=== PATIENT | male | born 1935 | race Caucasian/White ===

== ENCOUNTER → 2023-07-11 12:22 | Outpatient (REF) | payer MEDICARE, SELFPAY ==
[2023-07-11 16:00] LABS: Urine Albumin Negative (Neg - Trace); Urine Bilirubin Negative (Negative); Urine Character Clear (Clear); Urine Color Yellow; Urine Glucose Trace (Negative); Urine Ketone Negative (Negative); Urine Leukocyte Negative (Negative); Urine Nitrite Negative (Negative); Urine Occult Blood Negative (Negative); Urine Urobilinogen Negative (Neg - 1+)
[2023-07-11 16:03] LABS: % Basophils 0.3 % (0-2); % Eosinophils 0.8 % (0-6); % Immature Granulocytes 0.3 % (0-0.5); % Lymphocytes 11.5 % (20.5-51.1); % Monocytes 8.3 % (1.7-9.3); % Neutrophils 78.8 % (42.2-75.2); Absolute Lymphocytes 0.5 10^3/uL (1.2-3.4); Absolute Monocytes 0.3 10^3/uL (0.1-0.6); Absolute Neutrophils 3.2 10^3/uL (1.4-6.5); Hematocrit 32.4 % (39.0-52.0); Hemoglobin 10.5 g/dL (13.0-18.0); Mean Corp Hgb Conc. 32.4 g/dL (33.0-37.0); Mean Corpuscular Hgb 29.5 pg (27.0-31.0); Mean Platelet Volume 11.5 fL (7.4-10.4); Nucleated Red Blood Cells % 0 % (-); Platelet Count 162 10^3/uL (130-400); Red Blood Cell Count 3.56 10^6/uL (4.70-6.10); Red Cell Dist. Width 13.2 % (11.5-14.5)
[2023-07-11 16:13] LABS: Blood Urea Nitrogen 26 mg/dl (9-20); Calcium 8.8 mg/dl (8.4-10.2); Carbon Dioxide 26 mmol/L (22-30); Chloride 103 mmol/L (98-107); Glucose 288 mg/dl (70-99); Phosphorus 3.9 mg/dl (2.5-4.5); Potassium 4.8 mmol/L (3.5-5.1); Sodium 135 mmol/L (135-145)
[2023-07-11 16:27] LABS: Protein/creatinine Ratio 0.3; Urine Protein 16 mg/dl
[2023-07-11 17:37] LABS: Urine Red Blood Cell 0-2 /HPF (0-2); Urine Squamous Cell 0-2 /LPF (Few); Urine White Cell 0-2 /HPF (0-5)
== END ==
LOC: HWLAB 12:22
PROVIDERS: ATTENDING PHYSICIAN Internal Medicine Nephrology; FAMILY PHYSICIAN Family Medicine
DX: N18.32 Chronic kidney disease, stage 3b (principal); I12.9 Hypertensive chronic kidney disease with stage 1 through stage 4 chronic kidney disease, or unspecified chronic kidney disease; Z51.81 Encounter for therapeutic drug level monitoring; E08.21 Diabetes mellitus due to underlying condition with diabetic nephropathy; E26.09 Other primary hyperaldosteronism; I10 Essential (primary) hypertension; D63.1 Anemia in chronic kidney disease; E55.9 Vitamin D deficiency, unspecified
CPT/HCPCS: 36415; 80048; 81003; 81015; 82570; 83970; 84100; 84156; 85025

== ENCOUNTER → 2023-10-13 06:21 | Day surgery (SDC) | payer MEDICARE, SELFPAY ==
[2023-10-13 08:19] LABS: Glucose - Point of Care 141 mg/dl (70-99)
== END ==
LOC: GI 06:21
PROVIDERS: ATTENDING PHYSICIAN Specialist
DX: R10.13 Epigastric pain (principal); R93.3 Abnormal findings on diagnostic imaging of other parts of digestive tract; K31.89 Other diseases of stomach and duodenum; D13.1 Benign neoplasm of stomach
CPT/HCPCS: 43239; 88305; 82962; 88342

== ENCOUNTER → 2023-11-16 11:42 | Outpatient (REF) | payer MEDICARE, SELFPAY ==
[2023-11-16 16:30] LABS: Blood Urea Nitrogen 38 mg/dl (9-20); Carbon Dioxide 23 mmol/L (22-30); Chloride 104 mmol/L (98-107); Glucose 239 mg/dl (70-99); Potassium 5.6 mmol/L (3.5-5.1); Sodium 135 mmol/L (135-145); eGFR 38.78
== END ==
LOC: HWLAB 11:42
PROVIDERS: ATTENDING PHYSICIAN Internal Medicine; FAMILY PHYSICIAN Family Medicine; REFERRING PHYSICIAN Internal Medicine Nephrology
DX: I25.10 Atherosclerotic heart disease of native coronary artery without angina pectoris (principal); N18.32 Chronic kidney disease, stage 3b; Z51.81 Encounter for therapeutic drug level monitoring
CPT/HCPCS: 36415; 80048

== ENCOUNTER → 2023-11-24 10:45 | Outpatient (REF) | payer MEDICARE, SELFPAY ==
[2023-11-24 12:24] LABS: % Basophils 0.4 % (0-2); % Eosinophils 1.6 % (0-6); % Immature Granulocytes 0.4 % (0-0.5); % Lymphocytes 11.4 % (20.5-51.1); % Monocytes 9.7 % (1.7-9.3); % Neutrophils 76.5 % (42.2-75.2); Absolute Eosinophils 0.1 10^3/uL (0-0.7); Absolute Lymphocytes 0.7 10^3/uL (1.2-3.4); Absolute Monocytes 0.6 10^3/uL (0.1-0.6); Absolute Neutrophils 4.4 10^3/uL (1.4-6.5); Hematocrit 31.9 % (39.0-52.0); Hemoglobin 10.6 g/dL (13.0-18.0); Mean Corp Hgb Conc. 33.2 g/dL (33.0-37.0); Mean Corpuscular Hgb 29.8 pg (27.0-31.0); Mean Corpuscular Volume 89.6 fL (80.0-94.0); Mean Platelet Volume 11.9 fL (7.4-10.4); Nucleated Red Blood Cells % 0 % (-); Platelet Count 155 10^3/uL (130-400); Red Blood Cell Count 3.56 10^6/uL (4.70-6.10); Red Cell Dist. Width 13.2 % (11.5-14.5); White Blood Cell Count 5.7 10^3/uL (4.8-10.8)
[2023-11-24 12:52] LABS: ALT (SGPT) 18 U/L (0-50); AST (SGOT) 26 U/L (17-59); Albumin 4.1 g/dl (3.5-5.0); Alkaline Phosphatase 85 U/L (38-126); Blood Urea Nitrogen 35 mg/dl (9-20); Calcium 8.8 mg/dl (8.4-10.2); Carbon Dioxide 25 mmol/L (22-30); Chloride 104 mmol/L (98-107); Glucose 208 mg/dl (70-99); Potassium 5.5 mmol/L (3.5-5.1); Sodium 134 mmol/L (135-145); Total Bilirubin 0.9 mg/dl (0.2-1.3); Total Protein 6.6 g/dl (6.3-8.2); eGFR 38.53
== END ==
LOC: HWRAD 10:45
PROVIDERS: ATTENDING PHYSICIAN Internal Medicine; FAMILY PHYSICIAN Family Medicine
DX: C68.9 Malignant neoplasm of urinary organ, unspecified (principal)
CPT/HCPCS: 36415; 71250; 74176; 80053; 85025

== ENCOUNTER → 2023-11-29 09:45 | Outpatient (REF) | payer MEDICARE, SELFPAY | LOC: DHSLP 09:45 | PROVIDERS: ATTENDING PHYSICIAN Internal Medicine Critical Care Medicine; FAMILY PHYSICIAN Family Medicine | DX: G47.33 Obstructive sleep apnea (adult) (pediatric) (principal); G47.31 Primary central sleep apnea | CPT/HCPCS: 95811 ==

== ENCOUNTER 2023-12-13 06:34 | Day surgery (SDC) | payer MEDICARE, SELFPAY ==
[2023-12-13] VITALS (7 sets, daily range): BP systolic 131–191; BP diastolic 55–85; BMI 23.1
[2023-12-13 07:23] LABS: Glucose - Point of Care 171 mg/dl (70-99)
[2023-12-13 09:47] LABS: Glucose - Point of Care 157 mg/dl (70-99)
== END 2023-12-13 10:57 | disposition home or self-care (01) ==
LOC: SDS 06:34
PROVIDERS: ATTENDING PHYSICIAN Internal Medicine Gastroenterology
DX: D13.1 Benign neoplasm of stomach (principal); Z98.0 Intestinal bypass and anastomosis status
CPT/HCPCS: 43254; 88305; 82962

== ENCOUNTER 2023-12-25 17:53 | Inpatient (IN) | payer MEDICARE, SELFPAY ==
[2023-12-25] VITALS (9 sets, daily range): BP systolic 146–192; BP diastolic 66–89; BMI 22.1
[2023-12-25 12:37] LABS: % Basophils 0.4 % (0-2); % Eosinophils 1.3 % (0-6); % Immature Granulocytes 0.4 % (0-0.5); % Lymphocytes 12.6 % (20.5-51.1); % Monocytes 9.7 % (1.7-9.3); % Neutrophils 75.6 % (42.2-75.2); Absolute Eosinophils 0.1 10^3/uL (0-0.7); Absolute Lymphocytes 0.7 10^3/uL (1.2-3.4); Absolute Monocytes 0.5 10^3/uL (0.1-0.6); Absolute Neutrophils 4.2 10^3/uL (1.4-6.5); Hemoglobin 11.5 g/dL (13.0-18.0); Mean Corp Hgb Conc. 33.8 g/dL (33.0-37.0); Mean Corpuscular Hgb 30.5 pg (27.0-31.0); Mean Corpuscular Volume 90.2 fL (80.0-94.0); Mean Platelet Volume 11.6 fL (7.4-10.4); Nucleated Red Blood Cells % 0 % (-); Platelet Count 165 10^3/uL (130-400); Red Blood Cell Count 3.77 10^6/uL (4.70-6.10); Red Cell Dist. Width 13.3 % (11.5-14.5); White Blood Cell Count 5.6 10^3/uL (4.8-10.8)
[2023-12-25 12:49] LABS: ALT (SGPT) 20 U/L (0-50); AST (SGOT) 26 U/L (17-59); Albumin 4.4 g/dl (3.5-5.0); Alkaline Phosphatase 96 U/L (38-126); Blood Urea Nitrogen 26 mg/dl (9-20); Calcium 9.5 mg/dl (8.4-10.2); Carbon Dioxide 23 mmol/L (22-30); Chloride 108 mmol/L (98-107); Glucose 167 mg/dl (70-99); Potassium 4.8 mmol/L (3.5-5.1); Sodium 142 mmol/L (135-145); Total Bilirubin 0.8 mg/dl (0.2-1.3); Total Protein 7.1 g/dl (6.3-8.2); eGFR 48.65
--- NOTE | 2023-12-25 13:34 | ED.GENMED ---
History of Present Illness
General
Chief Complaint: Blood Pressure Problem
Source: patient and spouse
Exam Limitations: none
Time Seen by Provider: 12/25/23 12:45
Nursing documentation reviewed up to this point in time: agreed with
History of Present Illness
History of Present Illness:
Patient to ED with complaint of headache, dizziness, weakness. States he work at 4AM to use [employer] and states he was extremely weak. Had difficulty ambualting to bathroom, felt unsteady and disoriented. Reports chest pain/tightness at that time
lasting 5-10 minutes. Other symptoms lessened after approx 10 minutes but never resolved.Brought to ED by family for eval. states he has had mild dizziness since April. She reports that he has had frequent BP med changes and she feels
these changes are making him worse. As of tuesday his Isosorbite was decreased to 1 tablet in the AM and then Nebivolol was added every evening. BP remains unchanged and his symptms of dizziness, weakness, disorientation continue to worsen. No
fever/chills, recent illness.
Past History
Past History
ED Past Medical History: CAD, HTN, NIDDM, Other (Pancreatic CA, enlarged prostate) and Other (UTI, epididymitis, obstructive sleep apnea)
ED Past Surgical History: Cardiac (Pacer defibrillator) and Other (Whipple)
Social History
Tobacco: Non-smoker
Alcohol: None
Drug: None
Personal:
Living: with family
Employment: Retired
Family History
Family History: Other (Noncontributory)
Review of Systems
Review of Systems
Allergies reviewed?: Yes
All Other Systems: ROS reviewed and negative except as documented in HPI and ROS
Constitutional: Reports fatigue
EENT: Reports no symptoms
Respiratory: Reports no symptoms
Cardiac: Reports chest pain
ABD/GI: Reports no symptoms
: Reports no symptoms
Musculoskeletal: Reports no symptoms
Skin: Reports no symptoms
Neurological: Reports dizzy, headache and weakness
Psychiatric: Reports no symptoms
Phy Exam
General Physical Exam
General Presentation: mild distress
General age: appears stated age
General Skin: warm and dry
General Habitus: normal
General Mental: alert
General Hydration: appears well hydrated
Cardiovascular Exam
Cardiovascular Exam: regular rate/rhythm
Pulmonary Exam
Pulmonary Exam: lungs clear and no respiratory distress
Gastrointestinal Exam
Gastrointestinal Exam: normal bowel sounds and non tender
Neurological Exam
Neurological Exam: alert, oriented x3, CN II-XII intact, no motor deficits and no sensory deficits
Musculoskeletal Exam
Musculoskeletal Exam: full ROM and neuro vasc intact
Skin Exam
Skin Exam: normal color, warm/dry and no rash
Psychiatric Exam
Psychiatric Exam: normal mood/affect
Course
Orders/Labs/Results
Orders:
Orders
12/25/23 11:36
ECG [Electrocardiogram (*1)] Urgent
Reason for Study: Chest Pain
EKG- Treatment ONCE
12/25/23 12:27
Complete Blood Count/With Diff Urgent
Comprehensive Metabolic Panel Urgent
12/25/23 13:[address] [CT Head W/o Iv Contrast] Urgent
Comment:
Reason For Exam: headache, unsteady gait
12/25/23 13:21
Troponin I Urgent
12/25/23 13:25
Urinalysis Reflex To Culture Urgent
Date Specimen was Collected: 12/25/23
Time Specimen was Collected: 13:24
12/25/23 Dinner
2000 calorie (17 carb) Diabetic
At Your Request: Full Participation
Diabetic Diet: Low Lactose
Sodium, 2 Gram
12/25/23 17:07
Admit/Transfer Patient As Directed
Co-Sign Provider:
Level of Care: Inpatient admission
Assign to:: Telemetry
Physician / Group: Mahin Ryan
Diagnosis: HTN urgency, Dizziness
Reason for Telemetry: Chest Pain syndromes
Date to Stop Telemetry: 12/27/23
Time to Stop Telemetry: 11:00
Reason for Hospitalization: HTN urgency, Dizziness
Expected length of stay greater than two midnights?: Yes
ELOS- Estimated Length of Stay in days: 2
I certify the patient meets the requirements for IP care: Yes
PRN Pain Medication Management As Directed
May give lesser potent ordered pain med per pt: Yes
preference::
Protocol:: Medication orders for pain may be administered in a
manner that supports deferring to patient preference
when the pt is:
- Requesting an ordered lesser potent pain medication.
Least to most potent pain medications are defined
as: acetaminophen < NSAID < tramadol < opioids
(morphine, oxycodone, hydromorphone).
- Requesting a lesser dose of the same medication IF
ORDERED.
- Requesting a less intrusive route of administration
if both routes are prescribed by the provider (PO <
IV).
12/25/23 17:10
Code Status As Directed
Resuscitation Status: Full Code
12/25/23 18:20
Troponin I Q4H
Acetaminophen [Tylenol] 650 mg PO Q4HPRN PRN
Bisacodyl [Dulcolax] 10 mg RECTAL [id number] PRN
Dextrose 50%-Water [Dextrose 50% Syringe] 12.5 grams IV [id number] PRN
Docusate W/Senna [Senokot-S] 1 tablet PO BIDPRN PRN
Glucagon [GlucaGen] 1 mg IM PRN PRN
HydrALAZINE [Apresoline] 10 mg IV Q4HPRN PRN
Polyethylene Glycol Powder [Miralax] 17 grams PO DAILYPRN PRN
Spironolactone [Aldactone] 25 mg PO NOW STA
12/25/23 18:20
Echo 2D MMode Color/Doppler Routine
Reason for Study: aortic root dilation, refractory HTN
Activity As Directed
Activity Level: With Assistance
Bedside Glucose Monitoring As Directed
Frequency: AC&HS
Additional Instructions:: Change to q6h if pt on TPN, tube feeding or not eating
Orthostatic Vital Signs As Directed
Orthostatic VS Frequency: BID
Pneumatic Compression Sleeves As Directed
Type: Knee high
Vital Signs As Directed
Frequency: Per unit guidelines
Pt Eval And Treat Routine
Treatment: Vestibular assessment
Activity Level: With Assistance
DX Deep Vein Thrombosis Video Routine
12/25/23 20:00
ISOSORBIDE MONOnitrate ER [Imdur (Extended Release)] 60 mg PO BID
12/25/23 22:00
Nebivolol HCl [Bystolic] 10 mg PO HS
12/25/23 22:20
Troponin I Q4H
12/26/23 06:00
Basic Metabolic Panel IN AM
Complete Blood Count/No Diff IN AM
12/26/23 07:30
Insulin Aspart Corrective Low [Novolog Flexpen-Low Resistance] See Protocol SC AC
12/26/23 08:00
Aspirin Low Dose EC [Aspir Low (Enteric Coated)] 81 mg PO DAILY
Finasteride [Proscar] 5 mg PO DAILY
Losartan [Cozaar] 100 mg PO DAILY
Pantoprazole [Protonix] 40 mg PO DAILY
12/27/23 11:00
DC Protocol for Telemetry ONCE
Abnormal Lab Results
12/25/23
12:27
RBC 3.77 L 10^6/uL
(4.70-6.10)
Hgb 11.5 L g/dL
(13.0-18.0)
Hct 34.0 L %
(39.0-52.0)
MPV 11.6 H fL
(7.4-10.4)
Absolute Lymphs (auto) 0.7 L 10^3/uL
(1.2-3.4)
Neutrophils % 75.6 H %
(42.2-75.2)
Lymphocytes % 12.6 L %
(20.5-51.1)
Monocytes % 9.7 H %
(1.7-9.3)
Chloride 108 H mmol/L
(98-107)
BUN 26 H mg/dl
(9-20)
Creatinine 1.4 H mg/dL
(0.7-1.3)
Glucose 167 H mg/dl
(70-99)
12/25/23 12:27
12/25/23 12:27
Vital Signs
Initial and Last Documented VS:
Initial Vital Signs
Temp Pulse Resp BP Pulse Ox
98.3 F 68 20 180/89 98
12/25/23 11:33 12/25/23 11:33 12/25/23 11:33 12/25/23 11:33 12/25/23 11:33
Last Documented Vital Signs
Temp Pulse Resp BP Pulse Ox
98.2 F 65 18 192/81 99
12/25/23 18:35 12/25/23 18:35 12/25/23 18:35 12/25/23 18:35 12/25/23 18:35
*Critical Care Note
Total Time (30-74mins, 75-104mins- exclusive of procedures): Not Applicable
Update Note
Update Note:
Ppatient to ED after developing extreme weakness this AM. Reports extreme dizziness, cp/tightness, headache, confusion. Now with mild dizziness but remains weak. Unable to ambulate on own due to weakness. Labs, CT reviewed. No findings to explain
his symptoms. WIll admit to hospitalist - dizziness, weakness
ED Attending Note
-
Portions of this chart may have been created with voice recognition software.� Occasional wrong word or��sound alike� substitutions may have occurred due to the inherent limitations of voice recognition software.
Discharge Plan
Departure
Patient Disposition: Admit
Date of Disposition: 12/25/23
Time of Disposition: 15:35
Presentation/result/management discussed w/ accepting MD/DO: Hospitalist
Patient with high blood pressure during this ER visit?: Yes
Condition: Fair
Covid-19: Not Applicable
Discharge Problem:
Weakness, Dizziness
Interventions
Interventions:
*Risk Screen - Suicide Last Done: 12/25/23 12:21
*General Assessment Last Done: 12/25/23 12:21
*Neglect/Abuse Screening Last Done: 12/25/23 12:21
ED- Fall Risk Assessment Last Done: 12/25/23 18:28
*ED COVID-19 Vaccine History Last Done: 12/25/23 18:38
*Nursing Disposition Last Done: 12/25/23 18:28
ED- Cardiac Assessment Last Done: 12/25/23 12:21
ED- Neurological Assessment Last Done: 12/25/23 12:21
ED- Pulmonary Assessment Last Done: 12/25/23 12:21
Discharge Date and Time
Discharge Date/Time: 12/25/23 18:29
[2023-12-25 13:41] LABS: Urine Albumin Negative (Neg - Trace); Urine Bilirubin Negative (Negative); Urine Character Clear (Clear); Urine Color Yellow; Urine Glucose Negative (Negative); Urine Ketone Negative (Negative); Urine Leukocyte Negative (Negative); Urine Nitrite Negative (Negative); Urine Occult Blood Negative (Negative); Urine Urobilinogen Negative (Neg - 1+); Urine pH 6.5 (5.0-9.0)
[2023-12-25 13:57] LABS: Troponin I < 0.012 ng/ml
--- NOTE | 2023-12-25 17:25 | HPS.HSE ---
Addendum entered and electronically signed by Mahin Ryan MD 12/25/23 17:53:
I personally performed a history and physical exam of the patient and discussed management with the resident. I reviewed the resident's note and agree with the documented findings and plan of care HPI/CC.
Original Note:
Family Physician
-
Family Physician: Malik Rogers
Chief Complaint
-
Dizziness/weakness
History of Present Illness
88-year-old male with a past medical history of ICD and placement, aortic aneurysm, hypertension, hyperlipidemia, diabetes presents due to new onset of headache, dizziness, weakness. The symptoms started today at 4 AM when the patient woke up to
use the bathroom. Patient had difficulty ambulating to the bathroom he felt unsteady and disoriented. Per his this has been ongoing since April he has had frequent blood pressure med adjustments and she believes this is making him worse.
Patient's blood pressures in the emergency department were high systolics in the 180s and 170s, patient does admit to having blurry vision, chest pain, weakness and heaviness in his right and left leg. CT head without contrast was performed in the
emergency department and no acute intracranial abnormalities were seen. Patient's blood glucose was elevated his troponins were negative his urinary analysis was negative. Patient uses a cane to ambulate at baseline and lives at home with his .
Patient was admitted to telemetry for further workup and monitoring.
Medical History
Past Medical History
Past Medical History: Reports Cancer (Bladder cancer), HTN, Hypercholesterolemia, IDDM and Other
Additional Past Medical History:
Sleep apnea, BPH, descending thoracic aortic aneurysm, neuropathy
Past Surgical History: Reports Other
Additional Past Surgical History:
Carpal tunnel, partial cystectomy, diverticulectomy, TURBT, Whipple, bilateral hernia repair, lithotripsy x 2, ICD implant x 3, triple bypass, hemorrhoidectomy x 2, kidney stone removal, tonsillectomy, appendectomy, pacemaker implant
Social History
Tobacco: Former Smoker (18-dpil-cyll smoking history, quit approximate 20 years ago)
Alcohol: Former
Drug: None
Personal:
Living: With Family
Employment: Retired
Family History
Family History: Not pertinent
Allergies / Home Medications
Allergies reflects when Allergies were last updated in [facility].
Home Medications with original date entered in [facility]
Allergy/Medication List:
Allergies
Allergy/AdvReac Type Severity Reaction Status Date / Time
clonidine HCl [From Catapres] Allergy Intermediate see below Verified 12/25/23 11:35
amlodipine besylate Allergy see below Verified 12/25/23 11:35
[From Norvasc]
carvedilol [From Coreg] Allergy see below Verified 12/25/23 11:35
ceftazidime [From Fortaz] Allergy see below Verified 12/25/23 11:35
ciprofloxacin [From Cipro] Allergy Shortness Verified 12/25/23 11:35
of Breath
clonidine Allergy see below Verified 12/25/23 11:35
enalapril maleate Allergy could not Verified 12/25/23 11:35
[From Vasotec] urinate
fluorescein Allergy Hives Verified 12/25/23 11:35
fosinopril sodium Allergy chest pain Verified 12/25/23 11:35
[From Monopril]
guanfacine HCl [From Tenex] Allergy chest + Verified 12/25/23 11:35
abd pain,
extremely
weak
hydralazine [Hydralazine] Allergy severe Verified 12/25/23 11:35
chest pain
indapamide [From Lozol] Allergy severe Verified 12/25/23 11:35
depression,
abd/chest
pain
Iodinated Contrast Media Allergy Anaphylaxis Verified 12/25/23 11:35
[Iodinated Contrast Media -
IV Dye]
labetalol HCl [From Trandate] Allergy severe Verified 12/25/23 11:35
depression
levofloxacin [From Levaquin] Allergy Nausea / Verified 12/25/23 11:35
Vomiting
lisinopril Allergy pancreatiti Verified 12/25/23 11:35
s
metolazone [From Zaroxolyn] Allergy see below Verified 12/25/23 11:35
metoprolol tartrate Allergy pains in Verified 12/25/23 11:35
[From Lopressor] chest,
upset
stomach
nifedipine [From Procardia] Allergy severe Verified 12/25/23 11:35
chest pain
pregabalin [From Lyrica] Allergy extreme Verified 12/25/23 11:35
drowsiness,
weakness,
confusion
terazosin Allergy Shortness Verified 12/25/23 11:35
of Breath
verapamil HCl [From Calan] Allergy loss of Verified 12/25/23 11:35
hair
Home Medications
aspirin 81 mg tablet,delayed release 81 mg PO HS 08/25/13
finasteride 5 mg tablet 5 mg PO DAILY 08/25/13
acetaminophen 325 mg tablet 325 mg PO Q4HPRN PRN mild pain/fever 07/07/18
ascorbic acid (vitamin C) 500 mg tablet (Vitamin C) 500 mg PO NOON 07/07/18
coenzyme Q10 200 mg capsule (Co Q-10) 200 mg PO DAILY 07/07/18
folic acid 400 mcg tablet 0.8 mg PO DAILY 07/07/18
losartan 50 mg tablet 100 mg PO DAILY 07/07/18
niacin 100 mg tablet 250 mg PO DAILY 07/07/18
vitamin E (dl, acetate) 180 mg (400 unit) capsule 400 units PO NOON 07/07/18
insulin glargine 100 unit/mL (3 mL) subcutaneous pen 4 unit SC HS 12/13/23
isosorbide mononitrate 60 mg tablet,extended release 24 hr 60 mg PO BID 12/13/23
pantoprazole 40 mg tablet,delayed release 40 mg PO DAILY 12/13/23
Lactobac no.2-Bifidobac no.1-S. thermo 112.5 billion cell capsule (Visbiome) 1 cap PO DAILY 12/25/23
cholecalciferol (vitamin D3) 25 mcg (1,000 unit) tablet (Vitamin D3) 25 mcg PO DAILY 12/25/23
cranberry fruit 450 mg tablet (cranberry) 450 mg PO DAILY 12/25/23
insulin aspart U-100 100 unit/mL subcutaneous cartridge (Novolog PenFill U-100 Insulin aspart) 0 sliding scale dose SC AC 12/25/23
dfbbyo-rbjmjwfl-fuoltvp 12,000-38,000-60,000 unit capsule,delayed rel (Creon) 2 cap PO DAILYPRN PRN snacks 12/25/23
jvabpt-caszlksw-remryyi 12,000-38,000-60,000 unit capsule,delayed rel (Creon) 4 cap PO AC 12/25/23
nebivolol 10 mg tablet (Bystolic) 10 mg PO DAILY 12/25/23
simethicone 80 mg chewable tablet 80 mg PO DAILYPRN PRN gas pains 12/25/23
Review of Systems
-
History Source: Patient
A 12 point ROS was completed and negative except as noted: No
Constitutional: Reports Fatigue
Respiratory: Reports Cough
Cardiac: Reports Chest Pain
Abdomen/GI: Reports No Symptoms
: Reports No Symptoms
Neurological: Reports Dizzy, Weakness and Other (Patient reports bilateral dulled sensation in left and right lower extremity)
Physical Exam
Vital Signs
Vital Signs
Temp Pulse Resp BP Pulse Ox
98.3 F 60 14 183/74 100
12/25/23 11:33 12/25/23 16:15 12/25/23 16:15 12/25/23 15:09 12/25/23 16:15
Physical Exam
General: Well Developed, Well Nourished, No Apparent Distress, Comfortable and Conversant
Respiratory: Clear
Cardiac: S1/S2 and Regular Rhythm
GI: Soft, Non Tender, Non Distended and Normal Bowel Sounds
Musculoskeletal: No Edema
Skin: Warm and Dry
Neuro: Awake, Alert, Oriented, AO x 3, No Motor Deficits, Cranial Nerves Intact, DTR's Intact & Symmetrical and Other (Patient has symmetric bilateral lower and upper extremity strength. As well as symmetric sensation in lower and upper
extremities. Cranial nerves intact. No focal neurologic deficits on exam)
Psych: Calm and Intact Judgment/Insight
Laboratory Results
-
12/25/23 12:27
12/25/23 12:27
Laboratory Results
Total Bilirubin 0.8 mg/dl (0.2-1.3) 12/25/23 12:27
AST 26 U/L (17-59) 12/25/23 12:27
ALT 20 U/L (0-50) 12/25/23 12:27
Alkaline Phosphatase 96 U/L (38-126) 12/25/23 12:27
Troponin I < 0.012 ng/ml 12/25/23 13:21
Data Reviewed
-
CT Scan: Report Reviewed by me and Discussed with Physician
Lab Data: Labs Reviewed by me and Discussed with Physician
Impression/Plan
-
IMPRESSION:
88-year-old male presents with weakness and dizziness
PLAN:
#Hypertensive urgency
Blood pressures in the emergency department were systolics in the 180s and 170s
Patient reports blurry vision, chest pain, weakness
Patient will be started on his home blood pressure regiment
Patient reports not taking his home Bp meds today
Hydralazine IV will be added if home meds are unable to control blood pressure
#Dizziness
Physical therapy balance and vestibular evaluation
Orthostatic vitals twice daily
Carotid ultrasound
Check echocardiogram
#Chest pain
Troponins in ED were negative
Will order 2 more troponins and trend
Stop trending if next 2 are negative
Check echocardiogram
Monitor patient on telemetry
Attempt to get cardiology records from [facility]
#Descending aortic aneurysm
Patient follows vascular surgery at [facility]
Per patient he has a 5 cm descending aortic aneurysm that they are currently monitoring
Keep systolic blood pressures under control
Attempt to get CT scan from [facility]
#Allergies
Patient has an extensive allergy list
Discussion was had with patient about starting hydralazine if needed, it is recorded that patient gets chest pain from hydralazine
Patient agreed to receive hydralazine if needed
Unsure if allergies are true allergies medication side effects that were labeled as allergies
#Insulin-dependent diabetes mellitus
Continue patient on home insulin regiment
#GERD
Continue patient home pantoprazole
DVT prophylaxis: SCDs
Diet: Lactose-free, 2 g sodium, 2000 carb restricted
Full code
--- NOTE | 2023-12-25 17:35 | W.PN.UPDATE ---
Update Note
Progress Note Update
I personally performed a history and physical exam of the patient and discussed management with the resident. I reviewed the resident's note and agree with the documented findings and plan of care HPI/CC.
Patient is a 88-year-old male with past medical history of coronary artery disease with triple bypass, descending thoracic aortic aneurysm, multidrug resistant hypertension, insulin-dependent diabetes mellitus, history of Whipple sx in September
pancreatic insufficiency, GERD, episodic dizziness, hyperlipidemia sleep apnea, history of bladder cancer status post TURBT/partial cystectomy, history of ICD placement causing left arm DVT, history of nephrolithiasis s/p lithotripsy/surgical
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 Patient reported to having episodic dizziness for quite some time and have been following up
with primary cardiology at [facility], who is in process of adjusting patient blood pressure medication. Unfortunately symptoms's been persistent although patient denies of having any vertigo-like symptoms or syncope. Patient today was sitting up
from supine position and started to having dizziness. Patient also was complaining some chest heaviness lasting for 1 hour, no radiation no associated diaphoresis nausea. Patient told spouse that 'I am going to ' and spouse was concerned.
Patient was brought into ER for further evaluation. In ER patient was found to be hypertensive with systolic blood pressure in 180s, patient stated of not taking regular dose of home medication in the morning. Denies of any ongoing chest
pain/palpitation/shortness of breath/abdominal pain/diarrhea/dysuria. Patient have some dry cough. Patient also having some generalized weakness, no focal neurological deficit.
HEENT: No pallor, cyanosis, or jaundice. Throat clear.
NECK: Supple. No JVD.
RESPIRATORY: Lungs clear to auscultation.
CVS: S1, S2 normal. RRR. No murmur, rub or gallop.
ABDOMEN: Soft, non-tender. No distension. BS+/normal.
EXTREMITIES: No peripheral cyanosis or edema.
VEHICLE [employer]DER: AOx3. b/l symmetric knee reflex, motor power 5/5
1. Hypertension urgency
Multi-drug resistant HTN
-Patient have h/o of multi drug resistant HTN, have been tried on multiple medication
-Cardiology managing and on Tuesday visit one of office PA have decrease Imdur to 60mg/d and added nebivolol 10mg/hs. Not clear if taking coreg
-Patient did not take any of the medication today in the morning for unclear reason and currently systolic blood pressure in 180
-Resume back patient on Imdur/losartan/nebivolol regimen. As needed hydralazine for systolic blood pressure greater than 160 (reported allergy on chart is chest pain, patient not sure)
-Will require further dose adjustment based on patient response, as patient has been tried on multiple medication trying to change regimen drastically.
-Provide dose of Aldactone 25 mg x1 time as well
2. Dizziness
-Likely from orthostasis versus blood pressure swing related versus vestibular issue
-Check ortho vitals
-Echocardiogram check
-PT/Vestibular assessment
-Questioning if patient dizziness is an isolated issue and not related to blood pressure.
3. Descending thoracic aortic aneurysm
Chest discomfort
-Get records from primary cardiology office tomorrow
-Patient had some chest discomfort in the morning, troponin negative EKG normal
-If have recurrence will require CTA - patient has CKD
4. Generalized weakness
-PT evaluation
5. CKDIIIA
-Cr close to baseline, monitor
DVT PPX -lovenox
Full code
Total time spent : 78 mins
I personally saw and examined the patient.
I have reviewed all diagnostic interpretations and treatment plans as written.
Time includes patient management by me, time spent at the patients bedside, time to review lab and imaging results, discussing patient care, documentation in the medical record, and time spent with the family or caregiver and discussing care plan
with RN/Consultants.
[2023-12-25] MEDS: APRESOLINE 10 MG IV (18:10)
[2023-12-25] MEDS: ALDACTONE 25 MG PO (19:17)
[2023-12-25 20:23] LABS: Troponin I 0.013 ng/ml
[2023-12-25] MEDS: IMDUR (EXTENDED RELEASE) 60 MG PO (21:05)
[2023-12-25] MEDS: BYSTOLIC 10 MG PO (21:05)
[2023-12-25 21:27] LABS: Glucose - Point of Care 240 mg/dl (70-99)
[2023-12-25] MEDS: LANTUS 0.04 UNITS SC (22:05)
[2023-12-26] VITALS (9 sets, daily range): BP systolic 118–167; BP diastolic 50–95; PULSE 62–79; BMI 21.6
[2023-12-26 01:21] LABS: Troponin I 0.017 ng/ml
[2023-12-26] MEDS: TYLENOL 650 MG PO (03:53)
[2023-12-26 05:37] LABS: Hemoglobin 10.6 g/dL (13.0-18.0); Mean Corp Hgb Conc. 34.2 g/dL (33.0-37.0); Mean Corpuscular Hgb 30.7 pg (27.0-31.0); Mean Corpuscular Volume 89.9 fL (80.0-94.0); Mean Platelet Volume 11.5 fL (7.4-10.4); Platelet Count 164 10^3/uL (130-400); Red Blood Cell Count 3.45 10^6/uL (4.70-6.10); Red Cell Dist. Width 13.2 % (11.5-14.5); White Blood Cell Count 4.8 10^3/uL (4.8-10.8)
[2023-12-26 05:57] LABS: Blood Urea Nitrogen 30 mg/dl (9-20); Calcium 9.2 mg/dl (8.4-10.2); Carbon Dioxide 23 mmol/L (22-30); Chloride 105 mmol/L (98-107); Estimated Creatinine Clearance 42 ml/min; Glucose 147 mg/dl (70-99); Potassium 4.3 mmol/L (3.5-5.1); Sodium 139 mmol/L (135-145); eGFR 53.17
[2023-12-26 07:59] LABS: Glucose - Point of Care 125 mg/dl (70-99)
[2023-12-26 09:13] LABS: Troponin I 0.026 ng/ml
[2023-12-26] MEDS: NOVOLOG FLEXPEN-LOW RESISTANCE SC (09:34)
[2023-12-26] MEDS: PROSCAR 5 MG PO (09:40)
[2023-12-26] MEDS: PROTONIX 40 MG PO (09:40)
[2023-12-26] MEDS: IMDUR (EXTENDED RELEASE) 60 MG PO ×2 (09:40→20:25)
[2023-12-26] MEDS: COZAAR 100 MG PO (09:40)
[2023-12-26] MEDS: ASPIR LOW (ENTERIC COATED) 81 MG PO (09:40)
[2023-12-26] MEDS: ZENPEP DELAYED RELEASE CAPSULE 4 CAPSULE PO ×3 (09:41→17:41)
[2023-12-26 11:35] LABS: Glucose - Point of Care 261 mg/dl (70-99)
--- NOTE | 2023-12-26 13:55 | W.PN.HOSP.TC ---
Addendum entered and electronically signed by Cely Hughes MD 12/26/23 15:20:
I saw and evaluated the patient independently. I reviewed the resident�s note and agree with findings and plan as documented by Dr. Pineda.
GENERAL: well developed, well nourished, male in no apparent distress
HEENT: NC/AT
HEART: regular rate and rhythm, +S1, +S2
LUNGS : clear to auscultation bilaterally
ABDOM: soft, nontender, nondistended, + bowel sounds
EXT: no cyanosis, clubbing, or edema
NEUROLOGIC: grossly intact
Hypertensive urgency--Blood pressures in the emergency department were systolics in the 180s and 170s with symptoms (chest pain, blurry vision, weakness)--resolved--cont home med regimen--pt wants to change to cardiology here, will consult--ECHO
noted with NML EF
Dizziness--could be related to BPs but with 'room spinning', looking at vestibular (ear) cause--cont PT/OT--pt NOT orthostatic
Chest pain--Patient reports chest pain in the emergency department, has resolved--Troponins in ED were negative but trending upward--await cards input
Descending aortic aneurysm--Patient follows vascular surgery at [place]--Per patient he has a 5 cm descending aortic aneurysm that they are currently monitoring--Abdominal aortic ultrasound ordered
Allergies--extensive med allergy list--it is recorded that patient gets chest pain from hydralazine--Patient agreed to receive hydralazine if needed--Unsure if allergies are true allergies medication side effects that were labeled as allergies
Type 2 Insulin-requiring diabetes mellitus--Continue patient on home insulin regiment
GERD--cont protonix
DVT prophylaxis: SCDs
Code status --Full code
Original Note:
Today's Communication/Plan
-
Abdominal aortic ultrasound
Cardiology consult
Trend troponins
Assessment / Plan
Assessment / Plan
IMPRESSION:
88-year-old male presents with weakness and dizziness
PLAN:
#Hypertensive urgency
Blood pressures in the emergency department were systolics in the 180s and 170s
Pressures today in the 140s
In emergency department patient reports blurry vision, chest pain, weakness
Symptoms have resolved
Continue home blood pressure regimen
Hydralazine IV will be added if home meds are unable to control blood pressure
#Dizziness
Physical therapy balance and vestibular evaluation
Orthostatic vitals twice daily
#Chest pain
Patient reports chest pain in the emergency department, has resolved
Troponins in ED were negative
Repeat troponins were trending upwards
2 more troponins ordered
Stop trending if next have plateaued
Echocardiogram resulted ejection fraction 50 to 55% with indeterminate diastolic function
Monitor patient on telemetry
Cardiology consult
#Descending aortic aneurysm
Patient follows vascular surgery at [place]
Per patient he has a 5 cm descending aortic aneurysm that they are currently monitoring
Abdominal aortic ultrasound ordered
Keep systolic blood pressures under control
Cardiology consult
#Allergies
Patient has an extensive allergy list
Discussion was had with patient about starting hydralazine if needed, it is recorded that patient gets chest pain from hydralazine
Patient agreed to receive hydralazine if needed
Unsure if allergies are true allergies medication side effects that were labeled as allergies
#Insulin-dependent diabetes mellitus
Continue patient on home insulin regiment
#GERD
Continue patient home pantoprazole
DVT prophylaxis: SCDs
Diet: Lactose-free, 2 g sodium, 2000 carb restricted
Full code
Anticipated Discharge: 24 - 48 hours
Subjective/Interval History
-
Date of Service: December 26, 2023
Patient reports improvement of symptoms
Blood pressure has improved to 140s systolic
Objective Data
-
Labs:
Laboratory Results
12/26/23
05:06
WBC 4.8
Hgb 10.6 L
Hct 31.0 L
Plt Count 164
Sodium 139
Potassium 4.3
Chloride 105
Carbon Dioxide 23
BUN 30 H
Creatinine 1.3
Glucose 147 H
Calcium 9.2
Vital Signs:
Vital Signs
Temp Pulse Resp BP Pulse Ox
98 F 65 16 150/76 99
12/26/23 12:14 12/26/23 12:14 12/26/23 12:14 12/26/23 12:14 12/26/23 12:14
I&O
12/25/23 12/26/23 12/27/23
06:59 06:59 06:59
Intake Total 720 / 720
Output Total 1250 / 1250
Balance -530 / -530
Review of Systems
-
History Source: Patient
Constitutional: Reports No Symptoms
Respiratory: Reports No Symptoms
Cardiac: Reports No Symptoms
Abdomen/GI: Reports No Symptoms
Physical Exam
-
General: Well Developed, Well Nourished, No Apparent Distress and Conversant
Respiratory: Clear to Auscultation
Cardiac: Regular Rhythm and S1/S2
GI: Soft, Nontender, Nondistended and Normal Bowel Sounds
Musculoskeletal: No Edema
Skin: Warm and Dry
Neuro: Awake, Alert, Oriented and AO x 3
Psych: Calm and Intact Judgement/Insight
Data Reviewed
-
Labs: Labs Reviewed by me and Discussed with Physician
[2023-12-26] MEDS: NOVOLOG FLEXPEN-LOW RESISTANCE 3 UNITS SC (14:13)
--- NOTE | 2023-12-26 15:21 | CON.CAR ---
Addendum entered and electronically signed by Phill Barakat MD 12/27/23 11:07:
Correction to the below the addendum from 12/27/2023 should be attached to the 12/27/2023 visit/progress note by Liat RYDER
. The addendum below should not correspond to the note from Heike Cancino 12/26/2023
Addendum entered and electronically signed by Phill Barakat MD 12/27/23 10:12:
I saw and examined the patient.
The SUSTAINABILITY COORDINATOR's note was reviewed and I agree with the note.
Hypertension improving systolic blood pressure in the 140s. Patient with multiple medication intolerances as noted in allergy section. Tolerated titration of Bystolic. And remains on losartan. Patient received 1 dose of spironolactone this
admission but has rising creatinine. CT this admission shows descending thoracic aortic aneurysm 4.9 cm abdominal ultrasound pending
-Continue current antiantihypertensive medications and continue to monitor. With rising creatinine we will hold off on additional increase in dose right now. Note patient has a single-chamber ICD and does not have a dual-chamber pacemaker. This
may limit increases in by systolic in the future.
-Monitor renal function
-Await results of abdominal ultrasound.
Addendum entered and electronically signed by Willis Molina MD 12/26/23 18:11:
88 yo male with PMH of CAD/CABG approx 1998, MDT ICD, thoracic aortic aneurysm, HTN with labile BP (difficult to control given multiple med intolerances) is admitted with HTN urgency and dizziness. He has no cardiac complaints at time of my
interview. Exam with RRR, II/ systolic murmur at RUSB, no edema. Cr 1.3. Echo 12/26/23: EF 50-55%. CT chest 11/2023: 4.9 cm thoracic aorta.
BP is challenging due to multiple med intolerances.
Currently on losartan 100mg daily, imdur 60mg bid, and bystolic 10mg daily. BP is better, but still elevated. Increase bystolic to 20mg qHS.
Patient reports his will bring in copy of recent stress test.
Original Note:
Consultation
Consultation Request
Date/Time Consultation Requested: 12/26/23 2:45p
Date/Time Consultation Performed: 12/26/23 3p
Requesting Provider: Dr. Hall
Performing Provider: ALEKSEY Lala for Dr. Molina
Reason for Consultation: HTN
Medical History
-
Chief Complaint: HTN
History of Present Illness:
Mr. Poon is an 88 yo male with CAD s/p CABG x 3 25 years ago, MDT ICD, labile HTN, thoracic aortic aneurysm, pancreatic cancer s/p Whipple, SHON and DM, who presents to the ER with c/o dizziness and weakness. Last night he got up at 4am to use the
bathroom and felt dizzy, unsteady on his feet. Symptoms persisted even with rest so he came into the ER. His lpc is at [place] and he states they have been adjusting his BP medications since April 2023 because of dizziness/weakness. He
cannot remember the names of the medications, recently Imdur was increased and Bystolic was added. He also admits to RUTLEDGE and chest pain with walking up his incline driveway since April 2023. Had multiple heart tests recently that were
unrevealing, per patient. He states walking 2 miles on flat ground every day without RUTLEDGE or chest pain. He is admitted to the hospitalist service and we are consulted for HTN. BP on arrival 180/89 and he states at home BP was 198/90 on his
machine. Currently he denies any dizziness or other cardiac symptoms.
Past Medical History
Past Medical History: Other (as above)
Past Surgical History: Other (as above)
Social History
Tobacco: Former Smoker (quit 25 years ago)
Alcohol: Former (quit 25 years ago)
Personal:
Living: With Family
Employment: Retired
Family History
Family History: Reviewed & Not Pertinent
Allergies / Home Medications
Allergy/AdvReac Type Severity Reaction Status Date / Time
clonidine HCl [From Catapres] Allergy Intermediate see below Verified 12/25/23 11:35
amlodipine besylate Allergy see below Verified 12/25/23 11:35
[From Norvasc]
carvedilol [From Coreg] Allergy see below Verified 12/25/23 11:35
ceftazidime [From Fortaz] Allergy see below Verified 12/25/23 11:35
ciprofloxacin [From Cipro] Allergy Shortness Verified 12/25/23 11:35
of Breath
clonidine Allergy see below Verified 12/25/23 11:35
enalapril maleate Allergy could not Verified 12/25/23 11:35
[From Vasotec] urinate
fluorescein Allergy Hives Verified 12/25/23 11:35
fosinopril sodium Allergy chest pain Verified 12/25/23 11:35
[From Monopril]
guanfacine HCl [From Tenex] Allergy chest + Verified 12/25/23 11:35
abd pain,
extremely
weak
hydralazine [Hydralazine] Allergy severe Verified 12/25/23 11:35
chest pain
indapamide [From Lozol] Allergy severe Verified 12/25/23 11:35
depression,
abd/chest
pain
Iodinated Contrast Media Allergy Anaphylaxis Verified 12/25/23 11:35
[Iodinated Contrast Media -
IV Dye]
labetalol HCl [From Trandate] Allergy severe Verified 12/25/23 11:35
depression
levofloxacin [From Levaquin] Allergy Nausea / Verified 12/25/23 11:35
Vomiting
lisinopril Allergy pancreatiti Verified 12/25/23 11:35
s
metolazone [From Zaroxolyn] Allergy see below Verified 12/25/23 11:35
metoprolol tartrate Allergy pains in Verified 12/25/23 11:35
[From Lopressor] chest,
upset
stomach
nifedipine [From Procardia] Allergy severe Verified 12/25/23 11:35
chest pain
pregabalin [From Lyrica] Allergy extreme Verified 12/25/23 11:35
drowsiness,
weakness,
confusion
terazosin Allergy Shortness Verified 12/25/23 11:35
of Breath
verapamil HCl [From Calan] Allergy loss of Verified 12/25/23 11:35
hair
�Medication �Instructions �Recorded �Confirmed �Type
aspirin 81 mg tablet,delayed 81 mg PO HS Blood Clot 08/25/13 12/25/23 History
release Prevention/Tx
finasteride 5 mg tablet 5 mg PO DAILY Urinary Issue 08/25/13 12/25/23 History
acetaminophen 325 mg tablet 325 mg PO Q4HPRN PRN mild 07/07/18 12/25/23 History
pain/fever
ascorbic acid (vitamin C) 500 mg 500 mg PO NOON Supplement 07/07/18 12/25/23 History
tablet (Vitamin C)
coenzyme Q10 200 mg capsule (Co 200 mg PO DAILY Supplement 07/07/18 12/25/23 History
Q-10)
folic acid 400 mcg tablet 0.8 mg PO DAILY Supplement 07/07/18 12/25/23 History
losartan 50 mg tablet 100 mg PO DAILY Blood Pressure 07/07/18 12/25/23 History
niacin 100 mg tablet 250 mg PO DAILY Supplement 07/07/18 12/25/23 History
vitamin E (dl, acetate) 180 mg 400 units PO NOON Supplement 07/07/18 12/25/23 History
(400 unit) capsule
insulin glargine 100 unit/mL (3 4 unit SC HS Diabetes 12/13/23 12/25/23 History
mL) subcutaneous pen
isosorbide mononitrate 60 mg 60 mg PO BID Heart 12/13/23 12/25/23 History
tablet,extended release 24 hr Disease/Condition
pantoprazole 40 mg tablet,delayed 40 mg PO DAILY Gastrointestinal 12/13/23 12/25/23 History
release Issue
Lactobac no.2-Bifidobac no.1-S. 1 cap PO DAILY PROBIOTIC 12/25/23 12/25/23 History
thermo 112.5 billion cell capsule
(Visbiome)
cholecalciferol (vitamin D3) 25 25 mcg PO DAILY Supplement 12/25/23 12/25/23 History
mcg (1,000 unit) tablet (Vitamin
D3)
cranberry fruit 450 mg tablet 450 mg PO DAILY Supplement 12/25/23 12/25/23 History
(cranberry)
insulin aspart U-100 100 unit/mL 0 sliding scale dose SC AC Diabetes 12/25/23 12/25/23 History
subcutaneous cartridge (Novolog
PenFill U-100 Insulin aspart)
monkey-rbnenuup-haixxqd 2 cap PO DAILYPRN PRN snacks 12/25/23 12/25/23 History
12,000-38,000-60,000 unit
capsule,delayed rel (Creon)
yvznxv-bqlijajc-bpoljrw 4 cap PO AC Supplement 12/25/23 12/25/23 History
12,000-38,000-60,000 unit
capsule,delayed rel (Creon)
nebivolol 10 mg tablet (Bystolic) 10 mg PO DAILY Blood Pressure 12/25/23 12/25/23 History
simethicone 80 mg chewable tablet 80 mg PO DAILYPRN PRN gas pains 12/25/23 12/25/23 History
Review of Systems
-
History Source: Patient
All other systems: Negative unless noted
Physical Exam
Vital Signs
Temp Pulse Resp BP Pulse Ox
98 F 65 16 150/76 99
12/26/23 12:14 12/26/23 12:14 12/26/23 12:14 12/26/23 12:14 12/26/23 12:14
Lab Results
12/26/23 05:06
12/26/23 05:06
Troponin I 0.026 ng/ml D 12/26/23 08:32
Physical Exam
General: Well Developed, Well Nourished and No Apparent Distress
HEENT: Normocephalic and Anicteric
Respiratory: Clear and Non Labored Respirations
Cardiac: S1/S2 and Regular Rhythm
Breast: Deferred by me
GI: Soft, Non Tender, Non Distended and Normal Bowel Sounds
Rectal: Deferred by Provider
Genito-urinary: No Costovertebral Tender
Musculoskeletal: No Clubbing, No Cyanosis and No Edema
Skin: Warm and Dry
Neuro: AO x 3
Hematologic/Lymphatic: No Lymphadenopathy
Psych: Calm
Impression / Plan
-
HTN urgency - acute.
- elevated BP readings at home recently as well.
- he has multiple drug allergies/intolerances.
- will increase Bysotolic to 20mg QHS starting tonight.
- continue Losartan, Imdur and PRN Hydralazine.
- monitor for dizziness, check orthostatic vitals.
- echo today stable, see below.
CAD - s/p CABG x 3 25 years ago.
- follows with [facility] cardiology and now wants to switch to [facility].
- RUTLEDGE and chest pain worked up recently and unrevealing, per patient.
- will obtain records from [facility] cardiology.
TAA - Stable fusiform aneurysmal dilatation of the descending thoracic aorta measuring up to 4.[address] 11/24/23.
- he follows with vascular surgeon at [place], but wants to switch his care to [facility].
- BP management as above.
ICD - Medtronic.
- no discharges.
- followed by [facility] cardiology, will obtain records.
GERD - continue PPI.
DM - per hospitalist.
Data Reviewed
-
EKG: Tracing Personally Visualized and interpreted (AV paced [address] Scan: Report Reviewed by me (abd/pelvis 8/8/24: Stable fusiform aneurysmal dilatation of the descending thoracic aorta measuring up to 4.9 cm.) and Other (head ct negative)
Medical Tests (Nuc Med, Echo etc): Report Reviewed by me (echo 12/26/23: normal biventricular function, EF 50-55%, mild cLVH, dilated aortic root, ascending aorta measures 4.1cm)
Labs: Labs Reviewed by me
Old Records: Reviewed
--- NOTE | 2023-12-26 17:00 | CM ---
Alert awake oriented patient who lives with his Shu who lives in a 1 story home with 2 step to enter and bed and bathroom on first floor. He is independent in driving and all activities of daily living.CPAP with [facility].
[facility] hx /No SNF hx
[place] [facility]
[place] Rogers
PLAN Home no anticipated needs
[2023-12-26 17:49] LABS: Glucose - Point of Care 204 mg/dl (70-99)
[2023-12-26] MEDS: APRESOLINE 10 MG IV (17:49)
[2023-12-26] MEDS: NOVOLOG FLEXPEN-LOW RESISTANCE 2 UNITS SC (17:52)
[2023-12-26] MEDS: SENOKOT-S 1 TABLET PO (20:25)
[2023-12-26] MEDS: BYSTOLIC 20 MG PO (20:34)
[2023-12-26 21:53] LABS: Glucose - Point of Care 201 mg/dl (70-99)
[2023-12-26] MEDS: LANTUS 0.04 UNITS SC (21:58)
[2023-12-27] VITALS (9 sets, daily range): BP systolic 129–162; BP diastolic 63–89; PULSE 79–85; BMI 21.5
[2023-12-27 02:27] LABS: Troponin I 0.026 ng/ml
[2023-12-27] MEDS: TUMS 1 TABLET PO (02:42)
--- NOTE | 2023-12-27 03:36 | W.PN.UPDATE ---
Update Note
Progress Note Update
Reported by the nursing staff that the patient has a change the heart rhythm from 1st degree of heart block to 2nd degree, asymptomatic.
--- NOTE | 2023-12-27 06:27 | PTCARENOTE ---
Pt woken up for lab draw and stuck out arm for draw. Pt pulled back arm when needle went in and yelled 'what are you doing?'. Pt asked orientation question, pt oriented to self and year but stated 'I don't know where I am'. Pt oriented to hospital
and pt stated he recognized this RN and tech. BP 152/72, HR 61, And 98% RA. 5/5 strength for extremities. CRITICAL CARE RN notified and up to floor. Pt remembered where he was and why he was in the hospital. Pt aaox3 and ringing appropriately. Bed alarm placed
for safety. Plan of care ongoing.
[2023-12-27 07:42] LABS: Glucose - Point of Care 150 mg/dl (70-99)
[2023-12-27 08:37] LABS: Hematocrit 34.6 % (39.0-52.0); Hemoglobin 11.6 g/dL (13.0-18.0); Mean Corp Hgb Conc. 33.5 g/dL (33.0-37.0); Mean Corpuscular Hgb 30.4 pg (27.0-31.0); Mean Corpuscular Volume 90.8 fL (80.0-94.0); Mean Platelet Volume 11.4 fL (7.4-10.4); Platelet Count 188 10^3/uL (130-400); Red Blood Cell Count 3.81 10^6/uL (4.70-6.10); Red Cell Dist. Width 13.3 % (11.5-14.5); White Blood Cell Count 6.3 10^3/uL (4.8-10.8)
--- NOTE | 2023-12-27 08:38 | W.PN.CD ---
Addendum entered and electronically signed by Phill Barakat MD 12/27/23 11:05:
I saw and examined the patient.
The STUDIO HAND's note was reviewed and I agree with the note.
Hypertension improving systolic blood pressure in the 140s. Patient with multiple medication intolerances as noted in allergy section. Tolerated titration of Bystolic. And remains on losartan. Patient received 1 dose of spironolactone this
admission but has rising creatinine. CT this admission shows descending thoracic aortic aneurysm 4.9 cm abdominal ultrasound pending
-Continue current antiantihypertensive medications and continue to monitor. With rising creatinine we will hold off on additional increase in dose right now. Note patient has a single-chamber ICD and does not have a dual-chamber pacemaker. This
may limit increases in by systolic in the future.
-Monitor renal function
-Await results of abdominal ultrasound.
Original Note:
Today's Communication / Plan
-
Continue current medical therapy
Impression / Plan
-
BACKGROUND: 88M CAD s/p CABG x 3 25 years ago, MDT ICD, labile HTN, thoracic aortic aneurysm, pancreatic cancer s/p Whipple, SHON and DM, who presents to the ER with c/o dizziness and weakness.
Icing Mixer: [facility]
HTN urgency, resolved
- Readings labile at home
- His multiple drug allergies/intolerances make treatment challenging
- Bystolic increased to 20mg QHS last night, SBP 142 this morning pre Imdur dose
- Continue Losartan 100mg, Imdur 60mg
- Last dose of as needed hydralazine 12/26/2023 at 17:49 for SBP of 167 mmHg
Dizziness
- Orthostatic VS negative
- Echocardiogram without acute findings
- Telemetry stable
CAD - s/p CABG x 3 25 years ago.
- follows with [facility]ology and is considering switching to [facility].
- RUTLEDGE and chest pain worked up recently and unrevealing, per patient.
- Awaiting records
TAA - Stable fusiform aneurysmal dilatation of the descending thoracic aorta measuring up to 4.[address] 11/24/23.
- he follows with vascular surgeon at [place], but wants to switch his care to [facility] [facility].
- BP management as above.
ICD - Medtronic.
- No discharges.
- Followed by [facility] cardiology, will obtain records.
GERD - continue PPI.
DM - per hospitalist.
Former smoker, continued cessation recommended
SUBJECTIVE:
Denies CP, SOB, and dizziness.
DATA:
Echocardiogram, :
Normal biventricular size and systolic function without regional wall motion
abnormality. Estimated LVEF 50-55%.
Mild concentric left ventricular hypertrophy.
Aortic sclerosis without stenosis.
Dilated aortic root. Sinus of Valsalva measures 4.3 cm, sinotubular junction
measures 3.2 cm, ascending aorta measures 4.1 cm.
MRA, 04/22/2023:
Single right renal artery without stenosis.
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
Widely patent celiac, SMA, LETICIA.
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
Physical Exam
Vital Signs/Labs
Vital Signs
Temp Pulse Resp BP Pulse Ox
98.6 F 66 16 142/72 99
12/27/23 07:33 12/27/23 07:33 12/27/23 07:33 12/27/23 07:33 12/27/23 07:33
12/26/23 12/27/23 12/28/23
06:59 06:59 06:59
Actual Weight 72.291 kg 71.758 kg
12/27/23 08:16
LAB Results
12/25/23 12/25/23 12/26/23
13:21 19:49 00:49
Troponin I < 0.012 0.013 0.017 D
12/26/23 12/26/23 12/27/23
08:32 16:30 01:53
Troponin I 0.026 D Cancelled 0.026
Physical Exam
Constitutional: No acute distress and Comfortable
EENT: Anicteric and Moist mucous membranes
Cardiovascular: Rhythm & rate is regular, Pedal edema is absent and S1S2 is normal
Respiratory: Respiratory effort normal and Lungs clear to auscul.
GI: Soft, Distention absent, Flat, Non tender and Normal bowel sounds
Neuro/Psych: AO x 3
Other: Skin (warm and dry)
Data Reviewed
-
Date of Service: December 27, 2023
[2023-12-27 08:58] LABS: Troponin I 0.014 ng/ml
[2023-12-27 09:01] LABS: Blood Urea Nitrogen 36 mg/dl (9-20); Calcium 9.4 mg/dl (8.4-10.2); Carbon Dioxide 25 mmol/L (22-30); Chloride 105 mmol/L (98-107); Estimated Creatinine Clearance 33 ml/min; Glucose 147 mg/dl (70-99); Potassium 4.7 mmol/L (3.5-5.1); Sodium 142 mmol/L (135-145); eGFR 41.44
--- NOTE | 2023-12-27 09:21 | W.PN.HOSP.TC ---
Addendum entered and electronically signed by Cely Hughes MD 12/27/23 20:57:
I saw and evaluated the patient independently. I reviewed the resident�s note and agree with findings and plan as documented by Dr. Pineda.
GENERAL: well developed, well nourished, male in no apparent distress
HEENT: NC/AT
HEART: regular rate and rhythm, +S1, +S2
LUNGS : clear to auscultation bilaterally
ABDOM: soft, nontender, nondistended, + bowel sounds
EXT: no cyanosis, clubbing, or edema
NEUROLOGIC: grossly intact
had extensive ~45 minute discussion with pt and re: BPs, meds, weakness, symptoms, etc-- relayed that pt BASELINE creat 1.7-1.8 or so--also said when was on spironolactone BPs much improved--with multidrug resistant HTN; secondary causes
should be looked at-- said he had MRI of renal arteries which were 'OK'--IF spironolactone worked, tells me that aldosterone might be driving the BPs as it (spironolactone) is an aldosterone ang[place]--will consult renal for assistance--apprec
input
Hypertensive urgency--Blood pressures in the emergency department were systolics in the 180s and 170s with symptoms (chest pain, blurry vision, weakness)--resolved--cont home med regimen--pt wants to change to cardiology here--apprec input--ECHO
noted with NML EF
Dizziness--could be related to BPs but with 'room spinning', looking at vestibular (ear) cause--cont PT/OT--pt NOT orthostatic
Chest pain--Patient reports chest pain in the emergency department, has resolved--Troponins in ED were negative but trending upward--await cards input
Descending aortic aneurysm--Patient follows vascular surgery at [place]--Per patient he has a 5 cm descending aortic aneurysm that they are currently monitoring--Abdominal aortic ultrasound ordered, await final report
Allergies--extensive med allergy list--it is recorded that patient gets chest pain from hydralazine--Patient agreed to receive hydralazine if needed--Unsure if allergies are true allergies medication side effects that were labeled as allergies
Type 2 Insulin-requiring diabetes mellitus--Continue patient on home insulin regiment
GERD--cont protonix
DVT prophylaxis: SCDs
Code status --Full code
Original Note:
Today's Communication/Plan
-
continue blood pressure medications
orthostatic vitals BID
Follow cardio recs
Assessment / Plan
Assessment / Plan
IMPRESSION:
88-year-old male presents with weakness and dizziness
PLAN:
#Hypertensive urgency
Blood pressures in the emergency department were systolics in the 180s and 170s
Pressures today in the 140s
In emergency department patient reports blurry vision, chest pain, weakness
Symptoms have resolved
Continue home blood pressure regimen
Hydralazine IV will be added if home meds are unable to control blood pressure
Cardiology increased dose of Bystolic
Cardiology following
#STEVE
Patient's creatinine 1.6 today
Was 1.3 yesterday
contacted pt primary care physician- spoke to nurse who said his baseline is 1.7
#Dizziness
Physical therapy balance and vestibular evaluation
Orthostatic vitals twice daily
Orthostatic vitals were negative
#Chest pain
Patient reports chest pain in the emergency department, has resolved
Troponins in ED were negative
Repeat troponins were trending upwards
Troponins plateaued at 0.026 and started to trend downward
Stop trending
Echocardiogram resulted ejection fraction 50 to 55% with indeterminate diastolic function
Monitor patient on telemetry
Cardiology following
#Descending aortic aneurysm
Patient follows vascular surgery at [place]
Per patient he has a 4.9 cm descending aortic aneurysm that they are currently monitoring
Abdominal aortic ultrasound ordered, final read pending
Keep systolic blood pressures under control
Cardiology consult
#Allergies
Patient has an extensive allergy list
Discussion was had with patient about starting hydralazine if needed, it is recorded that patient gets chest pain from hydralazine
Patient agreed to receive hydralazine if needed
Unsure if allergies are true allergies medication side effects that were labeled as allergies
#Insulin-dependent diabetes mellitus
Continue patient on home insulin regiment
#GERD
Continue patient home pantoprazole
DVT prophylaxis: SCDs
Diet: Lactose-free, 2 g sodium, 2000 carb restricted
Full code
Anticipated Discharge: 24 - 48 hours
Subjective/Interval History
-
Date of Service: December 27, 2023
Nurse reports an episode of confusion overnight, where the patient could not understand and the overnight nurse practitioner was consulted
Per nursing he returned to baseline and no intervention was needed
No documentation noted in patient's chart of overnight event
Objective Data
-
Labs:
Laboratory Results
12/27/23
08:16
WBC 6.3
Hgb 11.6 L
Hct 34.6 L
Plt Count 188
Sodium 142
Potassium 4.7
Chloride 105
Carbon Dioxide 25
BUN 36 H
Creatinine 1.6 H
Glucose 147 H
Calcium 9.4
Vital Signs:
Vital Signs
Temp Pulse Resp BP Pulse Ox
98.6 F 66 16 142/72 99
12/27/23 07:33 12/27/23 07:33 12/27/23 07:33 12/27/23 07:33 12/27/23 07:33
I&O
12/26/23 12/27/23 12/28/23
06:59 06:59 06:59
Intake Total 720 / 720 1020 / 1020
Output Total 1250 / 1250 1500 / 1500
Balance -530 / -530 -480 / -480
Review of Systems
-
History Source: Patient
Constitutional: Reports No Symptoms
EENT: Reports Other (Patient reports ear fullness, not new)
Respiratory: Reports No Symptoms
Cardiac: Reports No Symptoms
Abdomen/GI: Reports No Symptoms
Physical Exam
-
General: Well Developed, Well Nourished, No Apparent Distress, Comfortable and Conversant
Respiratory: Clear to Auscultation
Cardiac: Regular Rhythm and S1/S2
GI: Soft, Nontender, Nondistended and Normal Bowel Sounds
Musculoskeletal: No Edema
Skin: Warm and Dry
Neuro: Awake, Alert, Oriented and AO x 3
Psych: Calm and Intact Judgement/Insight
Data Reviewed
-
Labs: Labs Reviewed by me and Discussed with Physician
[2023-12-27] MEDS: ZENPEP DELAYED RELEASE CAPSULE 4 CAPSULE PO ×3 (09:38→17:53)
[2023-12-27] MEDS: COZAAR 100 MG PO (09:38)
[2023-12-27] MEDS: PROTONIX 40 MG PO (09:38)
[2023-12-27] MEDS: NOVOLOG FLEXPEN-LOW RESISTANCE 1 UNITS SC ×2 (09:39→17:54)
[2023-12-27] MEDS: ASPIR LOW (ENTERIC COATED) 81 MG PO (09:39)
[2023-12-27] MEDS: PROSCAR 5 MG PO (09:39)
[2023-12-27] MEDS: IMDUR (EXTENDED RELEASE) 60 MG PO ×2 (09:39→21:31)
[2023-12-27] MEDS: MIRALAX 17 GRAMS PO (09:54)
[2023-12-27 11:39] LABS: Glucose - Point of Care 234 mg/dl (70-99)
[2023-12-27] MEDS: NOVOLOG FLEXPEN-LOW RESISTANCE 2 UNITS SC (13:47)
[2023-12-27 13:48] LABS: Glucose - Point of Care 210 mg/dl (70-99)
--- NOTE | 2023-12-27 17:19 | W.CON.NEPH ---
Consultation
-
Date/Time Consultation Requested: 12/27/231706
Date/Time Consultation Performed: 1714
Requesting Provider: Feng Brooks
Performing Provider: Aziza Alvarenga
Reason for Consultation: HTN urgency, CKD
Medical History
-
Chief Complaint: Weakness and dizzy
History of Present Illness:
Mr. Poon is an 88 yo male with CAD s/p CABG x 3 25 years ago on ASA, imdur, MDT ICD, labile HTN with multiple meds intolerances-on losartan, CKD [id number] baseline cr 1.6-1.9, Bystolic, thoracic aortic aneurysm, pancreatic cancer s/p Whipple, SHON and
DM on insulin, who presents to the ER with c/o dizziness and weakness on 12/24. he noticed symptoms at 4am when he went to use the bathroom and felt dizzy, unsteady on his feet, found no stroke. 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
been adjusting his BP medications since April 2023 because of dizziness/weakness. He cannot remember the names of the medications, recently Imdur was increased and Bystolic was added. He also admits to RUTLEDGE and chest pain with walking up his
[place] since April 2023. Had multiple heart tests recently that were unrevealing, per patient. BP on arrival 180/89. SInce admit BB dose increased and he received Aldactone x1 on 12/24. His BPs are still sub optimal hence nephrology
consulted. Currently he denies any dizziness or other cardiac symptoms.
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 BP
remained high since then. He follows Dr Rain joshua at [place] [facility] [facility], has been doing tele visits with them since he could not go for long drives. His salt intake is not restricted, was also on high potassium diet. She reports mild dizziness
persists specially making sudden movements. No CP or sob. NO edema. No n/v. notes MRI kidneys were done in Apr, will bring report tomorrow.
Past Medical History
HTN,
bladder cancer
CKD
IDDM
HLD
CAD
descending aortic aneurysm
GERD
SHON
Pancreatic cancer s/p whipple
BPH
neuropathy
Past Surgical History: Other (Carpal tunnel, partial cystectomy, diverticulectomy, TURBT, Whipple, bilateral hernia repair, lithotripsy x 2, ICD implant x 3, triple bypass, hemorrhoidectomy x 2, kidney stone removal, tonsillectomy, appendectomy,
pacemaker implant)
Social History
Tobacco: Former Smoker (quit 20yr ago, 30pack year)
Alcohol: Former
Drug: None
Personal:
Employment: Retired
Family History
Family History: Not Pertinent
Allergies / Home Medications
Allergy/AdvReac Type Severity Reaction Status Date / Time
clonidine HCl [From Catapres] Allergy Intermediate see below Verified 12/25/23 11:35
amlodipine besylate Allergy see below Verified 12/25/23 11:35
[From Norvasc]
carvedilol [From Coreg] Allergy see below Verified 12/25/23 11:35
ceftazidime [From Fortaz] Allergy see below Verified 12/25/23 11:35
ciprofloxacin [From Cipro] Allergy Shortness Verified 12/25/23 11:35
of Breath
clonidine Allergy see below Verified 12/25/23 11:35
enalapril maleate Allergy could not Verified 12/25/23 11:35
[From Vasotec] urinate
fluorescein Allergy Hives Verified 12/25/23 11:35
fosinopril sodium Allergy chest pain Verified 12/25/23 11:35
[From Monopril]
guanfacine HCl [From Tenex] Allergy chest + Verified 12/25/23 11:35
abd pain,
extremely
weak
hydralazine [Hydralazine] Allergy severe Verified 12/25/23 11:35
chest pain
indapamide [From Lozol] Allergy severe Verified 12/25/23 11:35
depression,
abd/chest
pain
Iodinated Contrast Media Allergy Anaphylaxis Verified 12/25/23 11:35
[Iodinated Contrast Media -
IV Dye]
labetalol HCl [From Trandate] Allergy severe Verified 12/25/23 11:35
depression
levofloxacin [From Levaquin] Allergy Nausea / Verified 12/25/23 11:35
Vomiting
lisinopril Allergy pancreatiti Verified 12/25/23 11:35
s
metolazone [From Zaroxolyn] Allergy see below Verified 12/25/23 11:35
metoprolol tartrate Allergy pains in Verified 12/25/23 11:35
[From Lopressor] chest,
upset
stomach
nifedipine [From Procardia] Allergy severe Verified 12/25/23 11:35
chest pain
pregabalin [From Lyrica] Allergy extreme Verified 12/25/23 11:35
drowsiness,
weakness,
confusion
terazosin Allergy Shortness Verified 12/25/23 11:35
of Breath
verapamil HCl [From Calan] Allergy loss of Verified 12/25/23 11:35
hair
�Medication �Instructions �Recorded �Confirmed �Type
aspirin 81 mg tablet,delayed 81 mg PO HS Blood Clot 08/25/13 12/25/23 History
release Prevention/Tx
finasteride 5 mg tablet 5 mg PO DAILY Urinary Issue 08/25/13 12/25/23 History
acetaminophen 325 mg tablet 325 mg PO Q4HPRN PRN mild 07/07/18 12/25/23 History
pain/fever
ascorbic acid (vitamin C) 500 mg 500 mg PO NOON Supplement 07/07/18 12/25/23 History
tablet (Vitamin C)
coenzyme Q10 200 mg capsule (Co 200 mg PO DAILY Supplement 07/07/18 12/25/23 History
Q-10)
folic acid 400 mcg tablet 0.8 mg PO DAILY Supplement 07/07/18 12/25/23 History
losartan 50 mg tablet 100 mg PO DAILY Blood Pressure 07/07/18 12/25/23 History
niacin 100 mg tablet 250 mg PO DAILY Supplement 07/07/18 12/25/23 History
vitamin E (dl, acetate) 180 mg 400 units PO NOON Supplement 07/07/18 12/25/23 History
(400 unit) capsule
insulin glargine 100 unit/mL (3 4 unit SC HS Diabetes 12/13/23 12/25/23 History
mL) subcutaneous pen
isosorbide mononitrate 60 mg 60 mg PO BID Heart 12/13/23 12/25/23 History
tablet,extended release 24 hr Disease/Condition
pantoprazole 40 mg tablet,delayed 40 mg PO DAILY Gastrointestinal 12/13/23 12/25/23 History
release Issue
Lactobac no.2-Bifidobac no.1-S. 1 cap PO DAILY PROBIOTIC 12/25/23 12/25/23 History
thermo 112.5 billion cell capsule
(Visbiome)
cholecalciferol (vitamin D3) 25 25 mcg PO DAILY Supplement 12/25/23 12/25/23 History
mcg (1,000 unit) tablet (Vitamin
D3)
cranberry fruit 450 mg tablet 450 mg PO DAILY Supplement 12/25/23 12/25/23 History
(cranberry)
insulin aspart U-100 100 unit/mL 0 sliding scale dose SC AC Diabetes 12/25/23 12/25/23 History
subcutaneous cartridge (Novolog
PenFill U-100 Insulin aspart)
hnnrdl-brtclsro-zudetdz 2 cap PO DAILYPRN PRN snacks 12/25/23 12/25/23 History
12,000-38,000-60,000 unit
capsule,delayed rel (Creon)
dlvjwb-nyavmfcj-ebwgwtj 4 cap PO AC Supplement 12/25/23 12/25/23 History
12,000-38,000-60,000 unit
capsule,delayed rel (Creon)
nebivolol 10 mg tablet (Bystolic) 10 mg PO DAILY Blood Pressure 12/25/23 12/25/23 History
simethicone 80 mg chewable tablet 80 mg PO DAILYPRN PRN gas pains 12/25/23 12/25/23 History
Review of Systems
-
all omcplete 12 point ROS have been inquired and found negative other than stated in HPI
All other systems: Negative unless noted
Physical Exam
Vital Signs
Vital Signs
Temp Pulse Resp BP Pulse Ox
98 F 63 16 150/66 100
12/27/23 15:32 12/27/23 15:32 12/27/23 15:32 12/27/23 15:32 12/27/23 15:32
Lab Results
WBC 6.3 10^3/uL (4.8-10.8) 12/27/23 08:16
RBC 3.81 10^6/uL (4.70-6.10) L 12/27/23 08:16
Hgb 11.6 g/dL (13.0-18.0) L 12/27/23 08:16
Hct 34.6 % (39.0-52.0) L 12/27/23 08:16
Plt Count 188 10^3/uL (130-400) 12/27/23 08:16
Sodium 142 mmol/L (135-145) 12/27/23 08:16
Potassium 4.7 mmol/L (3.5-5.1) 12/27/23 08:16
Chloride 105 mmol/L (98-107) 12/27/23 08:16
Carbon Dioxide 25 mmol/L (22-30) 12/27/23 08:16
BUN 36 mg/dl (9-20) H 12/27/23 08:16
Creatinine 1.6 mg/dL (0.7-1.3) H 12/27/23 08:16
eGFR 41.44 12/27/23 08:16
Glucose 147 mg/dl (70-99) H 12/27/23 08:16
Calcium 9.4 mg/dl (8.4-10.2) 12/27/23 08:16
Albumin 4.4 g/dl (3.5-5.0) 12/25/23 12:27
Aortic US:
FINDINGS:
Sagittal plan- (AP diameter/ Velocities)
Proximal aorta: 2.16 cm
Mid aorta: 2.18 cm
Distal aorta: 2.32 cm
Right iliac artery: 9.7 mm
Left iliac artery: Ectatic measuring 1.75 cm
Transverse diameter:
Proximal aorta: 2.04 cm
Mid aorta: 1.88 cm
Distal aorta 2.2 cm
Right iliac artery: 0.78 cm
Left iliac artery: 1.47 cm
Atherosclerotic disease involving the aortobiiliac system.
Right kidney: 10.73 cm. Stable cyst.
Left kidney: 12.86 cm. Stable cyst.
IVC: normal
IMPRESSION:
Atherosclerotic, nonaneurysmal abdominal aorta and right iliac artery as seen on recent CT.
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 h ead 12/24:
IMPRESSION:
No acute intracranial abnormality noted.
Physical Exam
General: Awake, Alert, Oriented, AOx3, No Distress and Nontoxic
HEENT: EOMI, Anicteric, Neck Supple and No JVD
Respiratory: Clear, Normal Excursion and Nonlabored Respirations
Cardiac: S1/S2, Regular Rate/Rhythm and Murmur
Abdomen: Soft, Nontender and Nondistended
Musculoskeletal: No Cyanosis and No Edema
Skin: No Rash
Neuro: Nonfocal/Grossly Intact
Psych: Mood/afflect pleasant, Insight/judgement good and Appropriate
Data Reviewed
-
Radiology: Report Reviewed by me, Discussed with Patient and Discussed with Family
Labs: Labs Reviewed by me, Discussed with Patient and Discussed with Family
Assessment/Plan
-
IMP:
Hypertensive urgency
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
Dizziness
Chest pain
CAD s/p CABG x3
s/p ICD
Thoracic aortic aneurysm 4.9cm-vascular surgery at [place]
Multiple BP meds Allergies
Insulin-dependent diabetes mellitus
GERD
BPH
SHON
Plan:
A/w HTN urgency , recent med changes in last 1month
BP improving since admit but remains sub optimal, reprotedly fair control with ALdactone before
BB dose increased 12/25, neg orthostatics
he notes to have allergies to every anti HTN class of med
very limited options available currently
would benefit from adding back ALdactone with close monitoring of cr and k
(options for future HCTZ or lasix , cardura with BPH)
await MRI reports tomorrow- to bring
given his descending aortic aneurysm would favor to keep SBP <130
echo shows mild LVH with normal EF
CKD-UA bland, follows bladder scan with h/o BPH
suspect may have HTN nephrosclerosis
current cr seem to be with in baseline
moving forward low na, low k diet strictly
d/w pt and in detail
pt wish to have nephrology locally since he can not travel to city
TT spent 60min
[2023-12-27 17:24] LABS: Glucose - Point of Care 182 mg/dl (70-99)
[2023-12-27] MEDS: ALDACTONE 25 MG PO (18:25)
[2023-12-27 21:15] LABS: Glucose - Point of Care 189 mg/dl (70-99)
[2023-12-27] MEDS: BYSTOLIC 20 MG PO (21:31)
[2023-12-27] MEDS: LANTUS 0.04 UNITS SC (21:32)
[2023-12-28 03:40] VITALS: BP 129/67
[2023-12-28 05:37] LABS: Hematocrit 31.9 % (39.0-52.0); Hemoglobin 10.8 g/dL (13.0-18.0); Mean Corp Hgb Conc. 33.9 g/dL (33.0-37.0); Mean Corpuscular Hgb 29.2 pg (27.0-31.0); Mean Corpuscular Volume 86.2 fL (80.0-94.0); Mean Platelet Volume 11.4 fL (7.4-10.4); Platelet Count 169 10^3/uL (130-400); Red Cell Dist. Width 13.4 % (11.5-14.5); White Blood Cell Count 5.8 10^3/uL (4.8-10.8)
[2023-12-28 06:00] VITALS: BMI 21.7
[2023-12-28 06:07] LABS: Blood Urea Nitrogen 42 mg/dl (9-20); Calcium 9.5 mg/dl (8.4-10.2); Carbon Dioxide 21 mmol/L (22-30); Chloride 106 mmol/L (98-107); Estimated Creatinine Clearance 33 ml/min; Glucose 133 mg/dl (70-99); Potassium 4.6 mmol/L (3.5-5.1); Sodium 140 mmol/L (135-145); eGFR 41.44
[2023-12-28 07:38] VITALS: BP 145/69
[2023-12-28 07:53] LABS: Glucose - Point of Care 121 mg/dl (70-99)
[2023-12-28] MEDS: NOVOLOG FLEXPEN-LOW RESISTANCE SC (07:57)
[2023-12-28] MEDS: PROTONIX 40 MG PO (08:27)
[2023-12-28] MEDS: ASPIR LOW (ENTERIC COATED) 81 MG PO (08:27)
[2023-12-28] MEDS: ZENPEP DELAYED RELEASE CAPSULE 4 CAPSULE PO ×2 (08:27→12:32)
[2023-12-28] MEDS: IMDUR (EXTENDED RELEASE) 60 MG PO (08:27)
[2023-12-28] MEDS: COZAAR 100 MG PO (08:27)
[2023-12-28] MEDS: PROSCAR 5 MG PO (08:27)
--- NOTE | 2023-12-28 10:24 | W.PN.CD ---
Today's Communication / Plan
-
increase nebivolol to 40mg qHS
Impression / Plan
-
BACKGROUND: 88M CAD s/p CABG x 3 25 years ago, MDT ICD, labile HTN, thoracic aortic aneurysm, pancreatic cancer s/p Whipple, SHON and DM, who presents to the ER with c/o dizziness and weakness.
Field Operations Coordinator: JEANA
HTN urgency, resolved
- His multiple drug allergies/intolerances make treatment challenging
- Continue Losartan 100mg daily, Imdur 60mg bid
- aldactone 25mg daily was added by nephrology
- increase nebivolol to 40mg qHS
Dizziness: no cardiac etiology identified
- Orthostatic VS negative
- Echocardiogram without acute findings
- Telemetry stable
CAD - s/p CABG x 3 25 years ago.
- follows with [facility] cardiology and is considering switching to [facility].
- RUTLEDGE and chest pain worked up recently and unrevealing, per patient.
- Awaiting records
TAA - Stable fusiform aneurysmal dilatation of the descending thoracic aorta measuring up to 4.[address] 11/24/23.
- he follows with vascular surgeon at [place], but wants to switch his care to [facility].
- BP management as above, including beta angeles and ARB
ICD - Medtronic.
- No discharges.
- Followed by [facility] cardiology, will obtain records.
GERD - continue PPI.
DM - per hospitalist.
Former smoker, continued cessation recommended
SUBJECTIVE:
Denies CP, SOB.
DATA:
Echocardiogram, :
Normal biventricular size and systolic function without regional wall motion
abnormality. Estimated LVEF 50-55%.
Mild concentric left ventricular hypertrophy.
Aortic sclerosis without stenosis.
Dilated aortic root. Sinus of Valsalva measures 4.3 cm, sinotubular junction
measures 3.2 cm, ascending aorta measures 4.1 cm.
MRA, 04/22/2023:
Single right renal artery without stenosis.
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
Widely patent celiac, SMA, LETICIA.
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
Physical Exam
Vital Signs/Labs
Vital Signs
Temp Pulse Resp BP Pulse Ox
98.1 F 61 16 145/69 99
12/28/23 07:38 12/28/23 07:38 12/28/23 07:38 12/28/23 08:27 12/28/23 07:38
12/27/23 12/28/23 12/29/23
06:59 06:59 06:59
Actual Weight 71.758 kg 72.376 kg
12/28/23 05:20
12/28/23 05:20
LAB Results
12/25/23 12/25/23 12/26/23
13:21 19:49 00:49
Troponin I < 0.012 0.013 0.017 D
12/26/23 12/26/23 12/27/23
08:32 16:30 01:53
Troponin I 0.026 D Cancelled 0.026
12/27/23
08:16
Troponin I 0.014 D
Physical Exam
Constitutional: No acute distress and Comfortable
EENT: Moist mucous membranes
Cardiovascular: Rhythm & rate is regular, Pedal edema is absent, JVD pressure is normal and Systolic murmur absent
Respiratory: Respiratory effort normal and Lungs clear to auscul.
GI: Soft and Distention absent
Neuro/Psych: AO x 3
Data Reviewed
-
Date of Service: December 28, 2023
EKG: Other (Tele: AV paced 60)
Labs: Labs Reviewed by me
--- NOTE | 2023-12-28 10:29 | CM ---
PT recommends VN . Pt declined VN need at dc.
Cardiology involved.
Family to transport home.
PLAN Home no anticipated needs.
[2023-12-28 11:20] VITALS: BP 129/69
[2023-12-28 11:39] LABS: Glucose - Point of Care 245 mg/dl (70-99)
[2023-12-28] MEDS: NOVOLOG FLEXPEN-LOW RESISTANCE 2 UNITS SC (12:32)
[2023-12-28] MEDS: ALDACTONE 25 MG PO (12:32)
--- NOTE | 2023-12-28 13:07 | W.PN.NEPH.PH ---
Today's Communication / Plan
-
dc planning
Assessment/Plan
-
IMP:
Hypertensive urgency
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
Dizziness
Chest pain
CAD s/p CABG x3
s/p ICD
Thoracic aortic aneurysm 4.9cm-vascular surgery at [place]
Multiple BP meds Allergies
Insulin-dependent diabetes mellitus
GERD
BPH
SHON
Plan:
dc on current BP meds
await MRI report from patient from april
f/u Dr. Wilkes in office
-
-
Date of Service: December 28, 2023
CC / HPI / ROS
-
Chief Complaint:
HTN
History of Present Illness:
BP stable on multidrug regimen
Cr 1.6 stable at baseline
Hgb low stable 10.8
Review of Systems:
no CP/SOB
Labs
-
Labs:
WBC 5.8 10^3/uL (4.8-10.8) 12/28/23 05:20
RBC 3.70 10^6/uL (4.70-6.10) L 12/28/23 05:20
Hgb 10.8 g/dL (13.0-18.0) L 12/28/23 05:20
Hct 31.9 % (39.0-52.0) L 12/28/23 05:20
Plt Count 169 10^3/uL (130-400) 12/28/23 05:20
Sodium 140 mmol/L (135-145) 12/28/23 05:20
Potassium 4.6 mmol/L (3.5-5.1) 12/28/23 05:20
Chloride 106 mmol/L (98-107) 12/28/23 05:20
Carbon Dioxide 21 mmol/L (22-30) L 12/28/23 05:20
BUN 42 mg/dl (9-20) H 12/28/23 05:20
Creatinine 1.6 mg/dL (0.7-1.3) H 12/28/23 05:20
eGFR 41.44 12/28/23 05:20
Glucose 133 mg/dl (70-99) H 12/28/23 05:20
Calcium 9.5 mg/dl (8.4-10.2) 12/28/23 05:20
Albumin 4.4 g/dl (3.5-5.0) 12/25/23 12:27
Physical Exam
-
Vital Signs:
Vital Signs
Temp Pulse Resp BP Pulse Ox
98.2 F 63 16 129/69 99
12/28/23 11:20 12/28/23 11:20 12/28/23 11:20 12/28/23 11:20 12/28/23 11:20
Cardiovascular:: Regular rate and rhythm
Respiratory:: Bilateral: Coarse
Lung Excursion:: Normal
Abdomen:: Nontender and Soft
Bowel Sounds:: Normal
Extremity Edema:: None: Bilateral:
--- NOTE | 2023-12-28 13:51 | W.PN.HOSP.TC ---
Addendum entered and electronically signed by Cely Hughes MD 12/28/23 19:14:
I saw and evaluated the patient independently. I reviewed the resident�s note and agree with findings and plan as documented by Dr. Pineda.
GENERAL: well developed, well nourished, male in no apparent distress
HEENT: NC/AT
HEART: regular rate and rhythm, +S1, +S2
LUNGS : clear to auscultation bilaterally
ABDOM: soft, nontender, nondistended, + bowel sounds
EXT: no cyanosis, clubbing, or edema
NEUROLOGIC: grossly intact
Hypertensive urgency--Blood pressures in the emergency department were systolics in the 180s and 170s with symptoms (chest pain, blurry vision, weakness)--resolved--cont home med regimen--pt wants to change to cardiology here--apprec input--ECHO
noted with NML EF--meds adjusted by cards/renal and BPs better
Dizziness--could be related to BPs but with 'room spinning', looking at vestibular (ear) cause--cont PT/OT--pt NOT orthostatic
Chest pain--Patient reports chest pain in the emergency department, has resolved--Troponins in ED were negative
Descending aortic aneurysm--Patient follows vascular surgery at [place]--Per patient he has a 5 cm descending aortic aneurysm that they are currently monitoring--Abdominal aortic ultrasound ordered, await final report
Allergies--extensive med allergy list--it is recorded that patient gets chest pain from hydralazine--Patient agreed to receive hydralazine if needed--Unsure if allergies are true allergies medication side effects that were labeled as allergies
Type 2 Insulin-requiring diabetes mellitus--Continue patient on home insulin regiment
GERD--cont protonix
DVT prophylaxis: SCDs
Code status --Full code
ok for d/c--met with pt again and reviewed MRI (brought in by from home, 04/2023)--right renal artery patent--2 left renal arteries (1 patent, inferior with moderate stenosis)
Time for discharge 33 minutes
Original Note:
Today's Communication/Plan
-
Discharge home on new meds
Assessment / Plan
Assessment / Plan
IMPRESSION:
88-year-old male presents with weakness and dizziness
PLAN:
#Hypertensive urgency
Blood pressures in the emergency department were systolics in the 180s and 170s
Pressures today in the 120s systolic
In emergency department patient reports blurry vision, chest pain, weakness
Symptoms have resolved
Continue home blood pressure regimen
Hydralazine IV will be added if home meds are unable to control blood pressure
Cardiology increased dose of Bystolic from 10 to 40
Nephrology started patient on spironolactone 25 mg
Monitor for hyperkalemia
#STEVE
Patient's creatinine 1.6 today
contacted pt primary care physician- spoke to nurse who said his baseline is 1.7
#Dizziness
Physical therapy balance and vestibular evaluation
Orthostatic vitals twice daily
Orthostatic vitals were negative
#Chest pain
Resolved
Patient reports chest pain in the emergency department,
Troponins in ED were negative
Repeat troponins were trending upwards
Troponins plateaued at 0.026 and started to trend downward
Stop trending
Echocardiogram resulted ejection fraction 50 to 55% with indeterminate diastolic function
Monitor patient on telemetry
Cardiology following
#Descending aortic aneurysm
Patient follows vascular surgery at [place]
Per patient he has a 4.9 cm descending aortic aneurysm that they are currently monitoring
Keep systolic blood pressures under control
Cardiology following
#Allergies
Patient has an extensive allergy list
Discussion was had with patient about starting hydralazine if needed, it is recorded that patient gets chest pain from hydralazine
Patient agreed to receive hydralazine if needed
Unsure if allergies are true allergies medication side effects that were labeled as allergies
#Insulin-dependent diabetes mellitus
Continue patient on home insulin regiment
#GERD
Continue patient home pantoprazole
DVT prophylaxis: SCDs
Diet: Lactose-free, 2 g sodium, 2000 carb restricted
Full code
Anticipated Discharge: Today
Subjective/Interval History
-
Date of Service: December 28, 2023
No acute events overnight
Objective Data
-
Labs:
Laboratory Results
12/28/23
05:20
WBC 5.8
Hgb 10.8 L
Hct 31.9 L
Plt Count 169
Sodium 140
Potassium 4.6
Chloride 106
Carbon Dioxide 21 L
BUN 42 H
Creatinine 1.6 H
Glucose 133 H
Calcium 9.5
Vital Signs:
Vital Signs
Temp Pulse Resp BP Pulse Ox
98.2 F 63 16 129/69 99
12/28/23 11:20 12/28/23 11:20 12/28/23 11:20 12/28/23 11:20 12/28/23 11:20
I&O
12/27/23 12/28/23 12/29/23
06:59 06:59 06:59
Intake Total 1020 / 1020 1320 / 1320
Output Total 1500 / 1500 300 / 300
Balance -480 / -480 1020 / 1020
Review of Systems
-
History Source: Patient
Constitutional: Reports No Symptoms and Other
Respiratory: Reports No Symptoms
Cardiac: Reports No Symptoms
Abdomen/GI: Reports No Symptoms
Neuro: Reports Headache and Lightheadedness
Physical Exam
-
General: Well Developed, Well Nourished, No Apparent Distress and Comfortable
Respiratory: Clear to Auscultation
Cardiac: Regular Rhythm and S1/S2
GI: Soft, Nontender, Nondistended and Normal Bowel Sounds
Skin: Warm and Dry
Neuro: Awake, Alert, Oriented and AO x 3
Psych: Calm and Intact Judgement/Insight
Data Reviewed
-
Labs: Labs Reviewed by me and Discussed with Physician
--- NOTE | 2023-12-28 14:25 | CM ---
entered order for dc.
Offered VN he requested [facility] .
[facility]u will transport home.
IMM reviewed signed on chart.
PLAN Home [facility] [phone]
[2023-12-28 15:27] VITALS: BP 156/80
--- NOTE | 2023-12-28 15:30 | W.DCSUMMARY ---
Addendum entered and electronically signed by Cely Hughes MD 12/28/23 19:18:
Read, reviewed, and agree. See same day progress note for additional details. Time spent coordinating care, DC planning, review of DC plan of care with resident, transition of care, review of records in EMR, med rec, consults, notes, d/w
consultants, nursing, family, and CM = 33 mins.
Original Note:
Discharge Summary
Discharge Data
Date of Admission: 12/25/23
Date of Discharge: 12/28/23
-
Pending Results: No
Hospital Course
Discharging Physician : Ellen Pineda
Disposition : Home with home health
Primary care physician : Dr. Rogers
Principal Discharge diagnosis : Hypertensive urgency
Chronic Discharge diagnosis : Dizziness, chest pain, descending aortic aneurysm, extensive allergy list, insulin-dependent diabetes mellitus, GERD,
Hospital Course : 88-year-old male past medical history of ICD placement, AAA, hypertension, hyperlipidemia, diabetes with an extensive allergy list presented to [facility] emergency department after new onset of headache, dizziness, weakness.
Patient states he woke up at 4 AM with the symptoms and had difficulty ambulating to the bathroom, he felt unsteady and disoriented. Per his this has been ongoing since April and he has had frequent blood pressure medication adjustments. In
the ED patient's blood pressures were in the high 170s and 180s systolics, he admits to having blurry vision, chest pain, weakness, heaviness in the right and left leg. CT head without contrast was performed the ED and demonstrated no acute
intracranial abnormalities. Patient's troponins were negative and UA was negative. Patient was admitted to telemetry for further workup and monitoring. Patient wanted to establish care with [facility] so cardiology consult was placed,
cardiology evaluated the patient and increased his dose of Bystolic from 10 to 20 mg at night. Eventually cardiology came back and increased his dose of Bystolic to 40 mg at night. Cardiology agreed to see the patient as outpatient and will manage
his blood pressure further as outpatient. Nephrology was also consulted and nephrology decided to start the patient on 25 mg spironolactone. Patient will follow-up with nephrology as an outpatient for further management of his blood pressure
medications. During his stay patient reports that his symptoms had largely improved, he was no longer dizzy having blurry vision chest pain or weakness. Only slight headache. Patient admits to feeling dizzy while he stands slightly and patient
was counseled to take his time after he stands up and not to begin moving right away. Physical therapy and Occupational Therapy worked with the patient and it was decided that he would benefit from home PT and a visiting nurse. Case management was
consulted to arrange these for the patient. Patient was discharged home with home health and home PT, he will follow-up with cardiology in 1 to 2 weeks and nephrology in 3 to 4 weeks and his primary care physician within a week as an outpatient for
further management of his blood pressure. Patient was discharged home with home health.
Important imaging findings :
12/25/[address] without contrast, impressions:
No acute intracranial abnormality noted.
12/27/2023 abdominal aorta ultrasound, impression:
Atherosclerotic, nonaneurysmal abdominal aorta and right iliac artery as seen on recent CT.
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
Procedure findings : 12/26/2023, echocardiogram impression:
Normal biventricular size and systolic function without regional wall motion
abnormality. Estimated LVEF 50-55%.
Mild concentric left ventricular hypertrophy.
Aortic sclerosis without stenosis.
Dilated aortic root. Sinus of Valsalva measures 4.3 cm, sinotubular junction
measures 3.2 cm, ascending aorta measures 4.1 cm.
Discharge Plan
-
Patient Disposition: Home with Home Care
Discharge Diagnosis/Procedures: Hypertensive urgency, dizziness, chest pain, thoracic aortic aneurysm, GERD, BPH, SHON, insulin-dependent diabetes mellitus
Condition: Good
Diet: Diabetic, Carb Controlled
Activity: No restrictions
Driving Restrictions: As prior to admission
Bathing Restrictions: None
Other Services: VN, PT and OT
Activity Restrictions/Additional Instructions:
Please follow-up with your primary care physician Dr. Rogers within 1 week of discharge for follow-up on your blood pressure and BMP for potassium monitoring
Please follow-up with Dr. Molina, cardiology in 2 to 4 weeks weeks of discharge for management of your blood pressure and AAA
Please follow-up with Dr. Wilkes in 2 to 4 weeks of discharge for management of your blood pressure medications
Referrals:
Wlilis Molina MD [Active] - in one to two weeks
Avery Rogers DO [Non-Admitting Privileges] - in less than 1 week
Aziza Wilkes MD [Active] - in two to four weeks
Additional Discharge Medication Instructions: Please continue taking new dose of nebivolol 40 mg at night once a day by mouth
Please continue taking spironolactone 25 mg by mouth once a day
Prescriptions:
New
spironolactone 25 mg Tablet
25 mg PO DAILY@1200 Qty: 30 0RF
nebivolol 10 mg Tablet
40 mg PO HS Qty: 30 0RF
Continued
aspirin 81 MG tablet,delayed release (DR/EC)
81 mg PO HS
finasteride 5 MG tablet
5 mg PO DAILY
losartan 50 MG tablet
100 mg PO DAILY
acetaminophen 325 MG tablet
325 mg PO Q4HPRN PRN (Reason: mild pain/fever)
folic acid 0.4 MG tablet
0.8 mg PO DAILY
ascorbic acid (vitamin C) [Vitamin C] 500 MG tablet
500 mg PO NOON
niacin 100 MG tablet
250 mg PO DAILY
coenzyme Q10 [Co Q-10] 200 MG capsule
200 mg PO DAILY
vitamin E (dl, acetate) 400 UNITS capsule
400 units PO NOON
isosorbide mononitrate 60 mg Tablet Extended Release 24 Hr
60 mg PO BID
pantoprazole 40 mg Tablet,Delayed Release (Dr/Ec)
40 mg PO DAILY
insulin glargine 100 unit/mL (3 mL) Insulin Pen
4 unit SC HS
simethicone 80 mg Tablet,Chewable
80 mg PO DAILYPRN PRN (Reason: gas pains)
insulin aspart U-100 [Novolog PenFill U-100 Insulin] 100 unit/mL Cartridge
0 sliding scale dose SC AC
cholecalciferol (vitamin D3) [Vitamin D3] 25 mcg (1,000 unit) Tablet
25 mcg PO DAILY
Visbiome 112.5 billion cell Capsule
1 cap PO DAILY
cranberry 450 mg Tablet
450 mg PO DAILY
Creon 12,000-38,000 -60,000 unit Capsule,Delayed Release(Dr/Ec)
4 cap PO AC
Creon 12,000-38,000 -60,000 unit Capsule,Delayed Release(Dr/Ec)
2 cap PO DAILYPRN PRN (Reason: snacks)
Discontinued
nebivolol [Bystolic] 10 mg Tablet
10 mg PO DAILY
Discharge Orders:
Discharge Patient (As Directed); Ordered 12/28/23
Ordered By: Feng Pineda
Discharge Date and Time
Discharge Date/Time: 12/28/23 16:47
Print Language: DIVEHI
== END 2023-12-28 16:47 | disposition home health service (06) | DRG 305 ==
LOC: 3 WEST ACU 17:53
PROVIDERS: Nurse Practitioner; ADMITTING PHYSICIAN Hospitalist; ATTENDING PHYSICIAN Internal Medicine; CONSULT PHYSICIAN Internal Medicine; EMERGENCY PHYSICIAN Student in an Organized Health Care Education/Training Program; FAMILY PHYSICIAN Family Medicine; OTHER PHYSICIAN Internal Medicine Cardiovascular Disease
DX: I16.0 Hypertensive urgency (principal); I12.9 Hypertensive chronic kidney disease with stage 1 through stage 4 chronic kidney disease, or unspecified chronic kidney disease; E11.22 Type 2 diabetes mellitus with diabetic chronic kidney disease; E11.40 Type 2 diabetes mellitus with diabetic neuropathy, unspecified; I1A.0 Resistant hypertension; N18.32 Chronic kidney disease, stage 3b; E78.00 Pure hypercholesterolemia, unspecified; G47.33 Obstructive sleep apnea (adult) (pediatric); N45.1 Epididymitis; N40.0 Benign prostatic hyperplasia without lower urinary tract symptoms; I71.23 Aneurysm of the descending thoracic aorta, without rupture; K21.9 Gastro-esophageal reflux disease without esophagitis; R07.9 Chest pain, unspecified; I25.10 Atherosclerotic heart disease of native coronary artery without angina pectoris; F32.A Depression, unspecified; Z85.51 Personal history of malignant neoplasm of bladder; Z95.810 Presence of automatic (implantable) cardiac defibrillator; Z95.1 Presence of aortocoronary bypass graft; Z90.411 Acquired partial absence of pancreas; Z88.8 Allergy status to other drugs, medicaments and biological substances; Z88.1 Allergy status to other antibiotic agents; Z87.891 Personal history of nicotine dependence; Z85.07 Personal history of malignant neoplasm of pancreas; Z79.899 Other long term (current) drug therapy; Z79.82 Long term (current) use of aspirin; Z79.4 Long term (current) use of insulin
CPT/HCPCS: 70450; 76770; 80048; 80053; 81003; 82962; 84484; 85025; 85027; 93005; 93306; 97116; 97162; 97530; 99285

== ENCOUNTER → 2024-02-08 10:54 | Outpatient (REF) | payer MEDICARE, SELFPAY ==
[2024-02-08 15:26] LABS: % Basophils 0.4 % (0-2); % Eosinophils 1.2 % (0-6); % Immature Granulocytes 0.4 % (0-0.5); % Lymphocytes 10.8 % (20.5-51.1); % Monocytes 8.5 % (1.7-9.3); % Neutrophils 78.7 % (42.2-75.2); Absolute Eosinophils 0.1 10^3/uL (0-0.7); Absolute Lymphocytes 0.6 10^3/uL (1.2-3.4); Absolute Monocytes 0.4 10^3/uL (0.1-0.6); Absolute Neutrophils 4.1 10^3/uL (1.4-6.5); Hematocrit 33.3 % (39.0-52.0); Hemoglobin 10.9 g/dL (13.0-18.0); Mean Corp Hgb Conc. 32.7 g/dL (33.0-37.0); Mean Corpuscular Hgb 29.2 pg (27.0-31.0); Mean Corpuscular Volume 89.3 fL (80.0-94.0); Mean Platelet Volume 11.7 fL (7.4-10.4); Nucleated Red Blood Cells % 0 % (-); Platelet Count 171 10^3/uL (130-400); Red Blood Cell Count 3.73 10^6/uL (4.70-6.10); Red Cell Dist. Width 14.1 % (11.5-14.5); White Blood Cell Count 5.2 10^3/uL (4.8-10.8)
[2024-02-08 15:34] LABS: ALT (SGPT) 16 U/L (0-50); AST (SGOT) 20 U/L (17-59); Albumin 4.1 g/dl (3.5-5.0); Alkaline Phosphatase 80 U/L (38-126); Blood Urea Nitrogen 35 mg/dl (9-20); Calcium 9.2 mg/dl (8.4-10.2); Carbon Dioxide 22 mmol/L (22-30); Chloride 106 mmol/L (98-107); Glucose 150 mg/dl (70-99); HDL Cholesterol 47 mg/dl; Iron 77 ug/dl (49-181); LDL Cholesterol, Calculated 113 mg/dl; Potassium 4.9 mmol/L (3.5-5.1); Sodium 140 mmol/L (135-145); Total Bilirubin 0.7 mg/dl (0.2-1.3); Total Cholesterol 172 mg/dl (50-199); Total Protein 6.8 g/dl (6.3-8.2); Triglyceride 64 mg/dl (10-149); Very Low Density Lipoprotein 12 mg/dl (0-30); eGFR 41.44
[2024-02-08 15:42] LABS: Percent Saturation 27 % (20-50); Total Iron Binding Capacity 283 ug/dl (261-462)
[2024-02-08 15:45] LABS: Intact PTH 88.1 pg/ml (13.6-85.8)
[2024-02-08 15:49] LABS: Vitamin D, 25-OH*** 49.6 ng/mL (30-80)
[2024-02-08 18:10] LABS: Microalbumin, Random Urine 1.6 mg/dl (0.6-1.7); Microalbumin/creatinine Ratio 24.7 mg/g
[2024-02-09 08:52] LABS: Glycohemoglobin (HgbA1c) 7.3 % (4.0-5.6)
== END ==
LOC: HWLAB 10:54
PROVIDERS: ATTENDING PHYSICIAN Internal Medicine Endocrinology, Diabetes & Metabolism; FAMILY PHYSICIAN Student in an Organized Health Care Education/Training Program
DX: D64.9 Anemia, unspecified (principal); R79.89 Other specified abnormal findings of blood chemistry; E78.00 Pure hypercholesterolemia, unspecified; I10 Essential (primary) hypertension; N18.30 Chronic kidney disease, stage 3 unspecified; E10.59 Type 1 diabetes mellitus with other circulatory complications; E10.65 Type 1 diabetes mellitus with hyperglycemia
CPT/HCPCS: 36415; 80053; 80061; 82043; 82306; 82570; 83036; 83540; 83550; 83970; 85025

== ENCOUNTER → 2024-05-31 11:03 | Outpatient (REF) | payer MEDICARE, SELFPAY ==
[2024-05-31 13:29] LABS: Blood Urea Nitrogen 37 mg/dl (9-20); Calcium 8.6 mg/dl (8.4-10.2); Carbon Dioxide 24 mmol/L (22-30); Chloride 104 mmol/L (98-107); Glucose 143 mg/dl (70-99); Potassium 4.9 mmol/L (3.5-5.1); Sodium 137 mmol/L (135-145); eGFR 38.53
[2024-05-31 13:40] LABS: Glycohemoglobin (HgbA1c) 7.4 % (4.0-5.6)
[2024-05-31 18:33] LABS: Microalbumin/creatinine Ratio 37.5 mg/g
== END ==
LOC: HWLAB 11:03
PROVIDERS: ATTENDING PHYSICIAN Specialist; FAMILY PHYSICIAN Internal Medicine Endocrinology, Diabetes & Metabolism
DX: N18.32 Chronic kidney disease, stage 3b (principal); E10.65 Type 1 diabetes mellitus with hyperglycemia
CPT/HCPCS: 36415; 80048; 82043; 82570; 83036; 83970

== ENCOUNTER → 2024-06-22 08:26 | Outpatient (REF) | payer MEDICARE, SELFPAY | LOC: HWRCS 08:26 | PROVIDERS: ATTENDING PHYSICIAN Internal Medicine; FAMILY PHYSICIAN Student in an Organized Health Care Education/Training Program | DX: R07.9 Chest pain, unspecified (principal); I25.10 Atherosclerotic heart disease of native coronary artery without angina pectoris | CPT/HCPCS: 78452; 93017; A9500; J2785 ==

== ENCOUNTER → 2024-08-23 13:33 | Outpatient (REF) | payer MEDICARE, SELFPAY | LOC: RAD 13:33 | PROVIDERS: ATTENDING PHYSICIAN Student in an Organized Health Care Education/Training Program | DX: M79.662 Pain in left lower leg (principal); M79.605 Pain in left leg | CPT/HCPCS: 72100; 73502; 93971 ==

== ENCOUNTER → 2024-09-06 08:39 | Outpatient (REF) | payer MEDICARE, SELFPAY | LOC: RAD 08:39 | PROVIDERS: ATTENDING PHYSICIAN Student in an Organized Health Care Education/Training Program | DX: I73.9 Peripheral vascular disease, unspecified (principal) | CPT/HCPCS: 93922; 93925 ==

== ENCOUNTER → 2024-10-29 10:20 | Outpatient (REF) | payer MEDICARE, SELFPAY ==
[2024-10-29 13:11] LABS: ALT (SGPT) 24 U/L (0-50); AST (SGOT) 23 U/L (17-59); Albumin 4.2 g/dl (3.5-5.0); Alkaline Phosphatase 85 U/L (38-126); Blood Urea Nitrogen 43 mg/dl (9-20); Calcium 9.2 mg/dl (8.4-10.2); Carbon Dioxide 25 mmol/L (22-30); Chloride 109 mmol/L (98-107); Glucose 146 mg/dl (70-99); HDL Cholesterol 41 mg/dl; LDL Cholesterol, Calculated 105 mg/dl; Potassium 5.1 mmol/L (3.5-5.1); Sodium 140 mmol/L (135-145); Total Protein 7.1 g/dl (6.3-8.2); Very Low Density Lipoprotein 16 mg/dl (0-30); eGFR 35.98
== END ==
LOC: HWLAB 10:20
PROVIDERS: ATTENDING PHYSICIAN Internal Medicine Endocrinology, Diabetes & Metabolism; FAMILY PHYSICIAN Student in an Organized Health Care Education/Training Program; REFERRING PHYSICIAN Internal Medicine
DX: E10.21 Type 1 diabetes mellitus with diabetic nephropathy (principal); I10 Essential (primary) hypertension; I25.10 Atherosclerotic heart disease of native coronary artery without angina pectoris
CPT/HCPCS: 36415; 80053; 80061; 84681

== ENCOUNTER → 2024-12-26 12:31 | Outpatient (REF) | payer MEDICARE, SELFPAY | LOC: HWRCS 12:31 | PROVIDERS: ATTENDING PHYSICIAN Internal Medicine; FAMILY PHYSICIAN Student in an Organized Health Care Education/Training Program | DX: I10 Essential (primary) hypertension (principal); I77.810 Thoracic aortic ectasia; I73.9 Peripheral vascular disease, unspecified | CPT/HCPCS: 93306 ==